=== PATIENT | male | born 1940 | race Caucasian/White ===

== ENCOUNTER → 2016-08-06 | Outpatient (CLI) | payer MEDICARE ==
[~2016-08-06] MED LIST: ALBU0.63 IH; ALBU8.5H2 IH; BUDE10.22 IH; FENASTERIDE PO; FINA5TAB6 PO; HYDR-3730 PO; IPRA3AMP IH; MONT10TA24 PO; OMEP20TA7 PO; PANT40TA2 PO; TAMS0.4C98 PO; VERA240C2 PO
--- OUTSIDE RECORDS SUMMARY | 2016-08-06 13:21 | XMS REPORT | Continuity of Care Document ---
Author Author [facility] Organization [facility] Address Unknown Phone Unavailable Allergies Active Description Code Type Severity Reaction Onset Reported/Identified Relationship to Patient Clinical Status Yes No Known Drug Allergies [id number] Drug Allergy Unknown N/ A 05/06/2014 Medications Problems Date Dx Coded Attending Type Code Diagnosis Diagnosed By 05/06/2014 SELENE MCKEON MD Ot 211.3 05/06/2014 SELENE MCKEON MD Ot 455.0 05/06/2014 SELENE MCKEON MD Ot 455.3 05/06/2014 SELENE MCKEON MD Ot 562.10 05/06/2014 SELENE MCKEON MD Ot V76.51 04/07/2015 VIV ASKEW DO Ot 493.00 Procedures Results Encounters ACCT No. Visit Date/Time Discharge Status Pt. Type Provider Facility Loc./Unit Complaint [id number] 05/06/2014 10:20:00 2013 14:20:00 DIS Outpatient SELENE MCKEON MD [facility] [id number] 05/04/2014 07:19:00 2013 23:59:59 CLS Outpatient SELENE MCKEON MD [facility] PREOP [id number] 04/26/2014 07:31:00 2013 23:59:59 CLS Outpatient [id number] 12/15/2013 06:45:00 2013 23:59:59 CLS Outpatient VIV ASKEW DO [facility] RT [id number] 09/16/2013 10:44:00 2013 23:59:59 CLS Outpatient
--- NOTE | 2016-08-06 13:27 | Diagnostic Imaging Report ---
INDICATION: Acid reflux, belching. COMPARISON: 09/16/2013. FINDINGS: No focal airspace disease. No pleural effusion or pneumothorax. Normal heart size and mediastinal contours. Stable pulmonary vasculature. No evidence of hiatal hernia by radiography. Age-related degenerative changes of the thoracic spine. IMPRESSION: 1. No acute cardiopulmonary process. 2. No radiographically apparent hiatal hernia. Dictated by: Dictated on workstation # [id number]
== END ==
LOC: RAD 09:23
PROVIDERS: ATTEND Family Medicine
DX: R14.2 Eructation (principal)
CPT/HCPCS: 71020

== ENCOUNTER → 2016-08-26 | Outpatient (CLI) | payer MEDICARE ==
[~2016-08-26] VITALS: Ht 182.9 cm; Wt 91.2 kg
--- OUTSIDE RECORDS SUMMARY | 2016-08-26 06:47 | XMS REPORT | Continuity of Care Document ---
Author Author [facility] Organization [facility] Address Unknown Phone Unavailable Allergies Active Description Code Type Severity Reaction Onset Reported/Identified Relationship to Patient Clinical Status Yes No Known Drug Allergies [id number] Drug Allergy Unknown N/ A 05/06/2014 Medications Problems Date Dx Coded Attending Type Code Diagnosis Diagnosed By 05/06/2014 SELENE MCKEON MD Ot 211.3 05/06/2014 SELENE MCKEON MD Ot 455.0 05/06/2014 SELENE MCKEON MD Ot 455.3 05/06/2014 SELENE MCKEON MD Ot 562.10 05/06/2014 SELENE MCKEON MD Ot V76.51 04/07/2015 VIV ASKEW DO Ot 493.00 08/06/2016 CRISTIANA KOCH, FRANK Douglas Ot R14.2 ERUCTATION Procedures Results Encounters ACCT No. Visit Date/Time Discharge Status Pt. Type Provider Facility Loc./Unit Complaint [id number] 05/06/2014 10:20:00 2013 14:20:00 DIS Outpatient SELENE MCKEON MD [facility] [id number] 05/04/2014 07:19:00 2013 23:59:59 CLS Outpatient SELENE MCKEON MD [facility] PREOP [id number] 04/26/2014 07:31:00 2013 23:59:59 CLS Outpatient [id number] 12/15/2013 06:45:00 2013 23:59:59 CLS Outpatient VIV ASKEW DO [facility] RT [id number] 09/16/2013 10:44:00 2013 23:59:59 CLS Outpatient [id number] 08/26/2016 06:29:00 ACT Outpatient SELENE MCKEON MD [facility] PREOP ABDOMINAL PAIN, HISTORY POLYPS [id number] 08/06/2016 09:23:00 ACT Outpatient CRISTIANA KOCH, FRANK Douglas [facility] RAD ERUCTATION
== END ==
LOC: PREOP 06:29
PROVIDERS: ATTEND Surgery Pediatric Surgery
DX: Z01.818 Encounter for other preprocedural examination (principal); Z12.11 Encounter for screening for malignant neoplasm of colon; Z86.010 Personal history of colon polyps; R10.9 Unspecified abdominal pain

== ENCOUNTER 2016-08-28 08:20 | Day surgery (SDC) | payer MEDICARE ==
[~2016-08-28] VITALS: Ht 182.9 cm; Wt 91.2 kg
[~2016-08-28 08:20] MED LIST changes: -ALBU0.63 IH; -FINA5TAB6 PO; -HYDR-3730 PO; -IPRA3AMP IH; -PANT40TA2 PO; -TAMS0.4C98 PO
--- OUTSIDE RECORDS SUMMARY | 2016-08-28 08:24 | XMS REPORT | Continuity of Care Document ---
Author Author [facility] Organization [facility] Address Unknown Phone Unavailable Allergies Active Description Code Type Severity Reaction Onset Reported/Identified Relationship to Patient Clinical Status Yes No Known Drug Allergies [id number] Drug Allergy Unknown N/ A 08/26/2016 Medications Problems Date Dx Coded Attending Type [...] Status Pt. Type Provider Facility Loc./Unit Complaint [id number] 05/06/2014 10:20:00 2013 14:20:00 DIS Outpatient SELENE MCKEON MD [facility] [id number] 05/04/2014 07:19:00 2013 23:59:59 CLS Outpatient SELENE MCKEON MD [facility] PREOP [id number] 04/26/2014 07:31:00 2013 23:59:59 CLS Outpatient [id number] 12/15/2013 06:45:00 2013 23:59:59 CLS Outpatient VIV ASKEW DO [facility] RT [id number] 09/16/2013 10:44:00 2013 23:59:59 CLS Outpatient [id number] 08/26/2016 06:29:00 ACT Outpatient SELENE MCKEON MD [facility] PREOP ABDOMINAL PAIN, HISTORY POLYPS [id number] 08/06/2016 09:23:00 ACT Outpatient CRISTIANA KOCH, FRANK Douglas [facility] RAD ERUCTATION
--- OUTSIDE RECORDS SUMMARY | 2016-08-28 08:24 | XMS REPORT | Continuity of Care Document ---
Author Author [facility] Organization [facility] Address Unknown Phone Unavailable Allergies Active Description Code Type Severity Reaction Onset Reported/Identified Relationship to Patient Clinical Status Yes No Known Drug Allergies [id number] Drug Allergy Unknown N/ A 08/26/2016 Medications [...] Status Pt. Type Provider Facility Loc./Unit Complaint [id number] 05/06/2014 10:20:00 2013 14:20:00 DIS Outpatient SELENE MCKEON MD [facility] [id number] 05/04/2014 07:19:00 2013 23:59:59 CLS Outpatient SELENE MCKEON MD [facility] PREOP [id number] 04/26/2014 07:31:00 2013 23:59:59 CLS Outpatient [id number] 12/15/2013 06:45:00 2013 23:59:59 CLS Outpatient VIV ASKEW DO [facility] RT [id number] 09/16/2013 10:44:00 2013 23:59:59 CLS Outpatient [id number] 08/26/2016 06:29:00 ACT Outpatient SELENE MCKEON MD [facility] PREOP ABDOMINAL PAIN, HISTORY POLYPS [id number] 08/06/2016 09:23:00 ACT Outpatient CRISTIANA KOCH, FRANK Douglas [facility] RAD ERUCTATION
[2016-08-28] MEDS ORDERED: HURRICAINE EXT TUBE (BENZOCAINE) XX PRN (08:30)
[2016-08-28] MEDS ORDERED: LIDOCAINE JELLY 2% (XYLOCAINE) 5 ML TUBE MM PRN (08:30)
[2016-08-28] MEDS ORDERED: NALOXONE 0.4 MG/ML 1 ML (NARCAN) VIAL IVP PRN (08:30)
[2016-08-28] MEDS ORDERED: FLUMAZENIL (ROMAZICON) 0.1 MG/ML 5 ML VIAL INJ PRN (08:30)
[2016-08-28 08:47] VITALS: BP 147/87
[2016-08-28] MEDS: NS IV 500 ML 500 ML IV PRN ×2 (08:51→09:35)
[2016-08-28] MEDS ORDERED: LIDOCAINE JELLY 2% (XYLOCAINE) 5 ML TUBE ONE (09:01)
[2016-08-28] MEDS ORDERED: fentaNYL INJECTION 100 MCG/2 ML AMP ONE ×2 (09:01)
[2016-08-28] MEDS ORDERED: HURRICAINE EXT TUBE (BENZOCAINE) ONE (09:02)
[2016-08-28] MEDS ORDERED: MIDAZOLAM 2 MG/2 ML (VERSED) VIAL ONE ×4 (09:02)
[2016-08-28] MEDS: fentaNYL INJECTION 100 MCG/2 ML AMP IVP PRN ×4 (09:12→09:49)
[2016-08-28] MEDS: MIDAZOLAM 2 MG/2 ML (VERSED) VIAL IVP PRN ×3 (09:13→09:39)
--- NOTE | 2016-08-28 09:17 | Progress Note-Pre Operative ---
Pre-Operative Progress Note H&P Reviewed The H&P was reviewed, patient examined and no changes noted. Date H&P Reviewed: Aug 28, 2016 Time H&P Reviewed: 09:00 Pre-Operative Diagnosis: GERD, chronic cough, hx polyp SELENE MCKEON MD Aug 28, 2016 9:17 am
--- NOTE | 2016-08-28 09:17 | Conscious Sedation/ASA ---
Conscious Sedation Pre-Proced Time Reviewed: 09:00 ASA Class: 2 Airway Mallampati Classification: ([place] appropriate class) I. II. III, IV Lungs Heart ASA score ASA 1: a normal healthy patient ASA 2: a patient with a mild systemic disease (mid diabetes, controlled hypertension, obesity ASA 3: a patient with a severe systemic disease that limits activity (angina , COPD, prior Myocardial infarction) ASA 4: a patient with an incapacitating disease that is a constant threat to life (CHF, renal failure) ASA 5: a moribund patient not expected to survive 24 hrs. (ruptured aneurysm) ASA 6: a declared brain patient whose organs are being harvested. For emergent operations, add the letter E after the classification Grade 2 Sedation Plan: Analgesia, Amnesia, Plan communicated to team members, Discussed options with patient/fam, Discussed risks with patient/fam Note The patient is an appropriate candidate to undergo the planned procedure, sedation, and anesthesia. The patient immediately re-assessed prior to indication. SELENE MCKEON MD Aug 28, 2016 9:17 am
[2016-08-28] MEDS ORDERED: morphine INJ 10 MG/ML 1ML (SYR OR VIAL) IV PRN (09:30)
[2016-08-28] MEDS ORDERED: ACETAMINOPHEN 325 MG TABLET/CAPLET (TYLENOL) PO PRN (09:30)
[2016-08-28] MEDS ORDERED: HYDROcodone/APAP 5 MG/325 MG (LORTAB) TAB PO PRN (09:30)
[2016-08-28] MEDS ORDERED: ONDANSETRON 4 MG/2 ML (SDV) Z0FRAN IV PRN (09:30)
[2016-08-28] MEDS ORDERED: NS IV 500 ML 500 ML ONE (09:34)
--- NOTE | 2016-08-28 10:12 | Progress Note-Post Operative ---
Post-Operative Progess Note Pre-Operative Diagnosis GERD, chronic cough, hx polyp Post-Operative Diagnosis reflux esophagits(class B), small distal esophageal diverticulum, moderate-large HH(4-5cm), moderate gastritis. mild sigmoid diverticulosis. Post-Op Procedure Note Date of Procedure: Aug 28, 2016 Name of Procedure: EGD with bx. Colonoscopy. Anesthesia Type CS Estimated blood loss (mL): minimal Specimen(s) collected GE jxn, antrum SELENE MCKEON MD Aug 28, 2016 10:12 am
[2016-08-28] MEDS ORDERED: PANT40TA2 PO (10:13)
--- NOTE | 2016-08-28 10:14 | Discharge Inst-Surgical ---
D/C Lap Instructions-KIDO New, Converted, or Re-Newed RX: RX on Chart Follow Up Appt in 6 weeks Activity as tolerated High Fiber Diet 25g or more per day Avoid Alcohol, Caffeine, Spicy [place] and Acid foods. Drink 64 fluid oz or more of fluids per day. Symptoms to Report: Fever over 101 degree F, Nausea/Vomiting If any problems/questions: Contact your physician or go to Emergency Room SELENE MCKEON MD Aug 28, 2016 10:14 am
[2016-08-28 10:25] VITALS: BP 117/60
[2016-08-28 11:00] VITALS: BP 120/68
[2016-08-28 11:17] VITALS: BP 120/68
--- NOTE | 2016-08-28 14:54 | PROCEDURE REPORT ---
PROCEDURE PHYSICIAN: SELENE STRINGER DATE OF PROCEDURE: 08/28/2016 ATTENDING PRIMARY CARE PHYSICIAN: Dr. Moi Damon PREOPERATIVE DIAGNOSIS: 1. History of colon polyps. 2. Gastroesophageal reflux disease. 3. Chronic cough. POSTOPERATIVE DIAGNOSES: 1. Reflux esophagitis class B. 2. Small distal esophageal diverticulum. 3. Large hiatal hernia 4 to 5 cm in size. 4. Moderate severity gastritis. 5. Pylorus. 6. Mild sigmoid diverticulosis. PROCEDURE: 1. EGD with biopsy. 2. Colonoscopy. SURGEON: Dr. Stringer. ANESTHESIA: Conscious sedation. ESTIMATED BLOOD LOSS: Minimal. FINDINGS: EGD: 1. Reflux esophagitis, class B. 2. Intrathoracic GE junction consistent with a hiatal hernia. 3. Small distal esophageal diverticulum. 4. Large hiatal hernia 4 to 5 cm in size. 5. Moderate severity gastritis. 6. Pylorus and duodenum appeared normal. COLONOSCOPY: 1. Colonoscopy-no significant hemorrhoids were identified. 2. Prostate gland was palpable and appeared normal. 3. Mild sigmoid diverticulosis. 4. The remainder of the colon was normal. 5. There were no polyps identified. DISPOSITION: The patient tolerated the procedure well. Mr. Daniel Reeder is a 75-year-old male known to us. He has had multiple colonoscopies done in the past. First one was done in 2001 where 2 polyps were identified in the sigmoid colon region and one at the rectosigmoid junction, 2 cm in size. This was biopsied and found to have some dysplastic changes. He underwent a follow-up colonoscopy 6 months later which did not show any lesions. In 2004 there were three ascending colon polyps identified, as well as one of the transverse colon and a mild sigmoid diverticulosis. All of the polyps were benign. In 2008 a hyperplastic colon was identified of the transverse and descending colon, as well as the rectum. In 2013 he had a polyp of the distal sigmoid colon, which was benign. At this time, he reports that he is having normal bowel movements and does not have any significant issues with diarrhea nor constipation. He does report that he has had worsening issues with reflux and regurgitation, as well as a chronic cough usually at night. He also has epigastric pressure sensation. PROCEDURE: The patient was brought to the endoscopy suite, laid in the left lateral decubitus position with the head slightly elevated. After adequate IV pain and sedative medications and conscious sedation anesthesia, the mouthpiece was applied. The endoscope was placed in the mouth, visualizing the pharynx and hypopharyngeal region. In the hypopharyngeal region there was some slight chronic edema which may be secondary to reflux versus sinusitis and postnasal drip. There were no discrete nodules or lesions identified. The endoscope was then gently intubated the esophageal opening and the esophagus insufflated. The endoscope was then advanced through the first, second, and 3rd portions esophagus. Just above the GE junction a small distal esophageal diverticulum was identified. There was a reflux esophagitis, class B identified with no ulcers or strictures. A biopsy was taken with forceps with visualization of good hemostasis. The endoscope was then advanced into the stomach and endoscope retroflexed visualizing a moderate to large size hiatal hernia, approximately 4 to 5 cm in size. There was also a moderate severity gastritis noted towards the lower aspect of the stomach. There were no formal ulcers, polyps or any neoplasms. A biopsy was taken with forceps with visualization of good hemostasis. The endoscope was then advanced through the pylorus into the first and second portions of the duodenum, which appeared normal. The endoscope was then slowly withdrawn while taking a second look and suctioning of residual air with no additional findings. The patient tolerated this portion the procedure well. For his reflux esophagitis, hiatal hernia, as well as gastritis, we will recommend medical management with the necessary lifestyle and diet accommodation including smaller, more frequent meals, avoidance of eating at night, as well as head elevation while lying supine. He also needs to avoid caffeinated beverages, spicy, greasy and acidic foods. We will also proceed with pantoprazole 40 mg daily. COLONOSCOPY: Under the same conscious sedation anesthesia, we then proceeded with the colonoscopy portion the procedure. A digital rectal examination was performed, which did not reveal any significant external or internal hemorrhoids. Normal sphincter tone was felt and there were no palpable masses. The endoscope was then intubated into the anus and the rectum gently insufflated. The endoscope was then advanced through the valves of Farrell the rectum with no polyps or any neoplasms identified. We then proceeded through the sigmoid colon where a mild sigmoid diverticulosis identified. The endoscope was then advanced through the remainder of the descending, transverse, and the ascending colon of the cecum. These segments were normal. There were no polyps or any neoplasms identified. The patient tolerated this portion the procedure well. We will recommend continued medical management with incorporation of a high fiber diet with at least 30 grams of fiber per day to as well as at least 64 fluid ounces of water daily to promote soft stools on a daily basis. We will recommend a follow-up colonoscopy in approximately 5 years. Job ID: [id number] Dictated Date: 08/28/2016 10:13:03 It Infrastructure Consultant Date: 08/28/2016 14:40:48 / gadiel
== END 2016-08-28 11:18 | disposition home or self-care (01) ==
LOC: ENDO 08:20
PROVIDERS: ATTEND Surgery Pediatric Surgery
DX: K21.0 Gastro-esophageal reflux disease with esophagitis (principal); K57.90 Diverticulosis of intestine, part unspecified, without perforation or abscess without bleeding; K44.9 Diaphragmatic hernia without obstruction or gangrene; K29.70 Gastritis, unspecified, without bleeding; Z86.010 Personal history of colon polyps
CPT/HCPCS: 88305

== ENCOUNTER 2016-10-21 14:50 | Outpatient (CLI) | payer MEDICARE ==
[~2016-10-21] VITALS: Ht 180.3 cm; Wt 88.0 kg
[~2016-10-21 14:50] MED LIST changes: +PANT40TA2 PO
[2016-10-21] MEDS ORDERED: FINA5TAB6 PO (14:54)
[2016-10-21 14:57] VITALS: BP 135/76
[2016-10-21] MEDS ORDERED: ALBU0.63 IH (15:02)
[2016-10-21] MEDS ORDERED: IPRA3AMP IH (15:04)
[2016-10-21 15:28] LABS: BASOPHILS # (AUTO) 0.1 10^3/uL (0.0-0.1); BASOPHILS % (AUTO) 1 % (0-10); EOSINOPHILS # (AUTO) 0.2 10^3/uL (0.0-0.3); EOSINOPHILS % (AUTO) 4 % (0-10); LYMPHOCYTES # (AUTO) 1.3 X 10^3 (1.0-4.0); LYMPHOCYTES % (AUTO) 20 % (12-44); MEAN CORPUSCULAR HEMOGLOBIN 28 PG (25-34); MEAN CORPUSCULAR HGB CONC 33 G/DL (32-36); MEAN CORPUSCULAR VOLUME 84 FL (80-99); MEAN PLATELET VOLUME 10.4 FL (7.4-10.4); MONOCYTES # (AUTO) 0.7 X 10^3 (0.0-1.0); MONOCYTES % (AUTO) 10 % (0-12); NEUTROPHILS # (AUTO) 4.4 X 10^3 (1.8-7.8); NEUTROPHILS % (AUTO) 66 % (42-75); PLATELET COUNT 212 10^3/uL (130-400); RED BLOOD COUNT 4.86 10^6/uL (4.35-5.85); RED CELL DISTRIBUTION WIDTH 14.1 % (10.0-14.5); WHITE BLOOD COUNT 6.7 10^3/uL (4.3-11.0)
== END 2016-10-21 15:15 | disposition home or self-care (01) ==
LOC: PREOP 14:50
PROVIDERS: ATTEND Surgery Pediatric Surgery
DX: Z01.812 Encounter for preprocedural laboratory examination (principal); Z11.2 Encounter for screening for other bacterial diseases; K44.9 Diaphragmatic hernia without obstruction or gangrene
CPT/HCPCS: 36415; 85025; 87081

== ENCOUNTER 2016-10-24 11:50 | Inpatient (IN) | payer MEDICARE ==
[~2016-10-24] VITALS: Ht 180.3 cm; Wt 88.0 kg
[~2016-10-24 11:50] MED LIST changes: +ALBU0.63 IH; +FINA5TAB6 PO; +IPRA3AMP IH
[2016-10-24] MEDS ORDERED: LACTATED RINGERS 1,000 ML IV PRN ×2 (12:29→12:40)
[2016-10-24] MEDS ORDERED: CATHETER FLUSH 10 ML SYR IV PRN (12:30)
[2016-10-24] MEDS ORDERED: ceFAZolin 1 GM/NS 50 ML IVPB IV ONE ×2 (12:30)
[2016-10-24] MEDS ORDERED: FAMOTIDINE 20MG/2ML IV (PEPCID) ONE (12:39)
[2016-10-24] MEDS ORDERED: FAMOTIDINE 20MG/2ML IV (PEPCID) IV ONE (12:45)
--- NOTE | 2016-10-24 12:48 | Progress Note-Pre Operative ---
Pre-Operative Progress Note H&P Reviewed The H&P was reviewed, patient examined and no changes noted. Date H&P Reviewed: October 24, 2016 Time H&P Reviewed: 12:45 Pre-Operative Diagnosis: symptomatic hiatal hernia SELENE MCKEON MD October 24, 2016 12:48 pm
[2016-10-24] MEDS ORDERED: BUP/EPI 0.5% 1:200,000 (SENSORCAINE) 30 ML VIAL ONE (13:58)
[2016-10-24] MEDS ORDERED: ONDANSETRON 4 MG/2 ML (SDV) Z0FRAN ONE (14:05)
[2016-10-24] MEDS ORDERED: SUCCINYLCHOLINE INJ 100 MG/5 ML SYR ONE (14:05)
[2016-10-24] MEDS ORDERED: ROCURONIUM 50 MG/5 ML (ZEMURON) VIAL IV ONE (14:05)
[2016-10-24] MEDS ORDERED: LIDOCAINE PF 2% 10 ML (XYLOCAINE) AMP ONE (14:05)
[2016-10-24] MEDS ORDERED: MIDAZOLAM 2 MG/2 ML (VERSED) VIAL ONE (14:05)
[2016-10-24] MEDS ORDERED: proPOfol 200 MG/20 ML (DIPRIVAN) VIAL IV ONE (14:05)
[2016-10-24] MEDS ORDERED: LACTATED RINGERS 1,000 ML IV ONE ×3 (14:05→19:04)
[2016-10-24] MEDS ORDERED: fentaNYL INJECTION 250 MCG/5 ML AMP ONE (14:06)
[2016-10-24] MEDS ORDERED: MIDAZOLAM 2 MG/2 ML (VERSED) VIAL IVP ONE (15:45)
[2016-10-24] MEDS: LACTATED RINGERS 1,000 ML IV PRN ×2 (16:42→19:10)
[2016-10-24] MEDS ORDERED: PHENYLEPHRINE 100 MCG/ML 10 ML (ANESTHESIA) SYR ONE (17:15)
[2016-10-24] MEDS ORDERED: HYDROmorphone (DILAUDID) 2 MG/ML VIAL IVP PRN (17:30)
[2016-10-24] MEDS ORDERED: MEPERIDINE (DEMEROL) INJ 50 MG/ML IVP PRN (17:30)
[2016-10-24] MEDS ORDERED: ONDANSETRON 4 MG/2 ML (SDV) Z0FRAN IVP PRN (17:30)
[2016-10-24] MEDS ORDERED: fentaNYL INJECTION 100 MCG/2 ML AMP ONE (17:35)
[2016-10-24] MEDS ORDERED: PROMETHAZINE INJ 25 MG/ML (PHENERGAN) AMP ONE (17:36)
[2016-10-24] MEDS ORDERED: SEVOFLURANE (ULTANE) 15 ML INHAL SOLN ONE ×4 (17:46→18:43)
[2016-10-24] MEDS ORDERED: GLYCOPYRROLATE 0.2 MG/ML (ROBINUL) 2 ML VIAL ONE (18:55)
[2016-10-24] MEDS ORDERED: NEOSTIGMINE (BLOXIVERZ ) 1 MG/1ML 10 ML VIAL ONE (18:55)
--- NOTE | 2016-10-24 19:08 | Progress Note-Post Operative ---
Post-Operative Progess Note Surgeon (s)/Traffic Division Commanding Officer (s) Surgeon SELENE MCKEON MD Traffic Division Commanding Officer: none Pre-Operative Diagnosis symptomatic hiatal hernia Post-Operative Diagnosis same Procedure & Operative Findings Date of Procedure 10/24/16 Procedure Preformed/Findings laparoscopic hiatal hernia repair and serge fundoplication Anesthesia Type GET Estimated Blood Loss Estimated blood loss (mL): minimal Specimens/Packing Specimens Removed none Packing: none SELENE MCKEON MD October 24, 2016 7:08 pm
[2016-10-24] MEDS ORDERED: diphenhydrAMINE 50 MG/ML INJ (BENADRYL) IVP PRN (19:15)
[2016-10-24] MEDS ORDERED: fentaNYL INJECTION 5,000 MCG in NS (IVPB) 0 ML IV SCH (19:15)
[2016-10-24] MEDS: morphine INJ 10 MG/ML 1ML (SYR OR VIAL) IVP PRN ×2 (19:50→19:54)
[2016-10-24 20:30] VITALS: BP 174/90
[2016-10-24] MEDS ORDERED: fentaNYL PCA 300 MCG/30 ML VIAL IV PRN (20:30)
[2016-10-24] MEDS ORDERED: NALOXONE 0.4 MG/ML 1 ML (NARCAN) VIAL IV PRN (20:30)
[2016-10-24] MEDS ORDERED: fentaNYL INJECTION 100 MCG/2 ML AMP IVP PRN (21:00)
[2016-10-24] MEDS: 1/2 NS W/KCL 20 MEQ/L 1,000 ML IV SCH (21:16)
[2016-10-24] MEDS: meTOprolol 5 MG/5 ML (LOPRESSOR) VIAL IVP SCH (21:16)
[2016-10-24] MEDS: ENOXAPARIN 30 MG/0.3 ML (LOVENOX) SYR SC SCH (21:16)
[2016-10-24] MEDS: metroNIDAZOLE 500MG/100ML IVPB 100 ML IV SCH (21:22)
[2016-10-24] MEDS: RT-ALBUTEROL SULF 2.5 MG/3 ML PRE-MIX VIAL INH SCH (21:58)
[2016-10-25 00:15] VITALS: BP 161/85
[2016-10-25] MEDS: ONDANSETRON 4 MG/2 ML (SDV) Z0FRAN IVP SCH ×3 (00:19→13:01)
[2016-10-25] MEDS: meTOprolol 5 MG/5 ML (LOPRESSOR) VIAL IVP SCH ×3 (00:20→08:58)
[2016-10-25] MEDS ORDERED: NS (IVPB) 50 ML ONE (00:30)
[2016-10-25] MEDS ORDERED: ceFAZolin 1,000 MG (ANCEF) VIAL ONE (00:30)
[2016-10-25] MEDS: ceFAZolin 2 GM/50 ML NS 50 ML IV SCH ×2 (00:45→08:58)
[2016-10-25] MEDS: oxyCODONE 20 MG/1 ML ORAL CONC (RoxiCODONE) CHARGE PER 1 ML PO PRN ×2 (02:00→14:06)
[2016-10-25] MEDS: RT-ALBUTEROL SULF 2.5 MG/3 ML PRE-MIX VIAL INH SCH ×3 (02:40→11:29)
--- NOTE | 2016-10-25 03:51 | OPERATIVE REPORT ---
DATE OF SERVICE: 10/24/2016 ATTENDING PRIMARY CARE PHYSICIAN: Dr. Moi Damon. PREOPERATIVE DIAGNOSIS: Symptomatic large hiatal hernia. POSTOPERATIVE DIAGNOSIS: Symptomatic large hiatal hernia. PROCEDURE: Laparoscopic hiatal hernia repair and Hannah fundoplication. SURGEON: Dr. Mckeon. ANESTHESIA: General endotracheal. ESTIMATED BLOOD LOSS: Minimal. FINDINGS: Large hiatal hernia approximately 4 to 5 cm in size. DISPOSITION: The patient tolerated the procedure well. The patient is a 75-year-old male known to us. We have seen him in the past for colonoscopies as well as polyps in the past. On 08/28/2016 he underwent an EGD and colonoscopy. Findings included a reflux esophagitis B as well as an intrathoracic GE junction and large hiatal hernia approximately 4 to 5 cm in size. He also was found to have moderate severity gastritis. Biopsies were negative for H. pylori as well as negative for Germain's esophagus. He has had a longstanding history of gastroesophageal reflux disease as well as regurgitation and constant belching. He reports that this has worsened in the past several months and tends to occur at all times. The risks and benefits of hiatal hernia repair as well as a Hannah fundoplication were explained to the patient and he wanted to proceed with surgery. He underwent an esophageal manometry study which did show normal waveform contractions of the esophagus as well as normal lower esophageal sphincter tone. DESCRIPTION OF PROCEDURE: The patient was brought to the operating room, laid supine on the table. After adequate IV pain and sedating medications and general endotracheal intubation, the abdomen was prepped and draped in standard surgical fashion. 0.5% Marcaine with epinephrine was then used to anesthetize the overlying skin in the left upper abdominal quadrant and a small transverse skin incision made using a 15 blade. A 0 silk suture was applied to the medial aspect of the incision for retraction, a Veress needle inserted with a low opening pressure of 0 mmHg. The abdomen was then insufflated to 15 mmHg pressure. The Veress needle removed and a 5 mm Xcel trocar placed followed by a 5 mm 45-degree angle laparoscope, visualizing the peritoneal cavity. A four-quadrant abdominal exploration was performed. We were not able to visualize the hiatal hernia at this time. What was visualized was the liver, stomach, gallbladder, small bowel; omentum appeared normal. Under direct visualization, we then proceeded to place a midabdominal, left of midline 10 mm port after the skin and peritoneum were anesthetized using 0.5% Marcaine with epinephrine and a transverse skin incision made using a 15 blade. In a similar manner, a midabdominal, right of midline 10 mm port was placed followed by a right upper abdominal quadrant 5 mm port. An area in the epigastric region was then anesthetized using 0.5% Marcaine with epinephrine and a small transverse skin incision made using an 11 blade. A tract was then created through the abdominal wall layers using a trocar to a 5 mm port. Through this opening, a medium sized [place] liver retractor was placed and the left lobe of the liver retracted anteriorly and superiorly. A large hiatal hernia was identified with stomach within the hernia sac. The patient was then placed in steep reverse Trendelenburg position. The stomach was reduced out of the mediastinum and we proceeded with excision of the hernia sac within the mediastinum. We proceeded first with opening of the pars flaccida and identifying the right josefina of the diaphragm. We then proceeded concentrically around the anterior portion of the diaphragm. We then proceeded left lateral, dissecting out the entire left josefina of the diaphragm as well. The inferior portion was then dissected out using Sonicision as well with visualization of good hemostasis. We then proceeded with approximation of the josefina of the diaphragm using interrupted 2-0 Surgidac sutures using EndoStitch device. We then proceeded to place 2 anterior sutures to restore the normal anatomy of the esophageal hiatus through the diaphragm. Good hemostasis was observed. We then proceeded to take down the short gastric vessels along the fundus and cardia of the stomach using the Sonicision. We then proceeded with a Hannah 360-degree posterior to anterior wrap in a loose manner. We proceeded to place interrupted 2-0 Surgidac sutures approximating the inferior and anterior portions of the stomach as well as encompassing the muscle layer of the esophagus. Good hemostasis was observed. The liver retractor was then removed and the fascia and peritoneum to the 10 mm ports were then removed using a Praneeth-Halina device and a 0 Vicryl suture. The abdomen was desufflated and the remaining ports removed. All skin incisions were closed using 4-0 Monocryl running subcuticular sutures. Wounds were then cleaned and covered with Dermabond. The patient tolerated the procedure well. We will start IV and oral pain medication with a NEGATIVE RESTORER. We will also proceed with DVT prophylaxis with calf SCDs, early ambulation as well as Lovenox injections. Tomorrow we will start the patient on clear liquid diet and once he is tolerating liquids and has good pain control with oral pain medication, is ambulating well, we will discharge him home. Job ID: [id number] DocumentID: [id number] Dictated Date: 10/24/2016 19:26:18 Women'S Studies Lecturer Date: 10/25/2016 03:51:11 Dictated By: SELENE MCKEON MD
[2016-10-25 04:20] VITALS: BP 163/77
[2016-10-25] MEDS: 1/2 NS W/KCL 20 MEQ/L 1,000 ML IV SCH (04:22)
[2016-10-25] MEDS: metroNIDAZOLE 500MG/100ML IVPB 100 ML IV SCH ×2 (04:22→13:01)
[2016-10-25 06:16] LABS: MEAN PLATELET VOLUME 10.4 FL (7.4-10.4); RED BLOOD COUNT 4.66 10^6/uL (4.35-5.85); RED CELL DISTRIBUTION WIDTH 13.8 % (10.0-14.5); WHITE BLOOD COUNT 8.8 10^3/uL (4.3-11.0)
[2016-10-25 07:16] LABS: ANION GAP 7 MMOL/L (5-14); BLOOD UREA NITROGEN 14 MG/DL (7-18); BUN/CREATININE RATIO 18; CALCIUM 8.3 MG/DL (8.5-10.1); CARBON DIOXIDE 23 MMOL/L (21-32); CHLORIDE 107 MMOL/L (98-107); CREATININE SERUM 0.79 MG/DL (0.60-1.30); GFR ESTIMATED > 60; GLUCOSE 94 MG/DL (70-105); POTASSIUM 4.1 MMOL/L (3.6-5.0); SODIUM 137 MMOL/L (135-145)
[2016-10-25 08:00] VITALS: BP 152/74
[2016-10-25] MEDS ORDERED: PANTOPRAZOLE 40 MG/10 ML (PROTONIX) VIAL IV SCH (09:00)
[2016-10-25] MEDS: ENOXAPARIN 30 MG/0.3 ML (LOVENOX) SYR SC SCH (09:00)
[2016-10-25] MEDS ORDERED: TAMS0.4C98 PO (10:18)
--- NOTE | 2016-10-25 11:49 | Progress Note (SOAP) ---
Subjective Subjective/Events-last exam doing well. tolerating liquids. urinary retention with hx BPH. Objective Exam Vital Signs Date Time Temp Pulse Resp B/P (MAP) Pulse Ox O2 Delivery O2 Flow Rate FiO2 10/25/16 11:30 92 10/25/16 08:00 98.6 70 20 152/74 94 2.00 2.00 10/25/16 07:16 93 10/25/16 04:20 97.8 79 18 163/77 96 2.00 10/25/16 02:41 96 3.00 10/25/16 00:56 82 10/25/16 00:15 97.2 82 18 161/85 94 2.00 10/24/16 21:58 96 3.00 10/24/16 21:45 81 10/24/16 20:30 96.2 86 8 174/90 95 2.00 10/24/16 20:30 3.00 I & O 10/25/16 07:00 Intake Total 4300 ml Output Total 1375 ml Balance 2925 ml Capillary Refill : General Appearance: No Apparent Distress HEENT: PERRL/EOMI Neck: Full Range of Motion Respiratory: Chest Non Tender Cardiovascular: Regular Rate, Rhythm Gastrointestinal: normal bowel sounds, non tender Extremity: Normal Capillary Refill Neurologic/Psychiatric: Alert, Oriented x3 Skin: Normal Color Lymphatic: No Adenopathy Results Lab Laboratory Tests 10/25/16 05:28: White Blood Count 8.8, Red Blood Count 4.66, Hemoglobin 12.9L, Hematocrit 40, Mean Corpuscular Volume 85, Mean Corpuscular Hemoglobin 28, Mean Corpuscular Hemoglobin Concent 33, Red Cell Distribution Width 13.8, Platelet Count 177, Mean Platelet Volume 10.4, Sodium Level 137, Potassium Level 4.1, Chloride Level 107, Carbon Dioxide Level 23, Anion Gap 7, Blood Urea Nitrogen 14, Creatinine 0.79, Estimat Glomerular Filtration Rate > 60, BUN/Creatinine Ratio 18, Glucose Level 94, Calcium Level 8.3L Assessment/Plan Assessment/Plan Assess & Plan/Chief Complaint s/p HH repair and serge fundoplication. ambulate, phase 1 clear liquid diet for 1 week. home soon. Clinical Quality Measures DVT/VTE Risk/Contraindication: Risk Factor Score Per Nursin RFS Level Per Nursing on Admit: 3=High SELENE MCKEON MD October 25, 2016 11:49 am
[2016-10-25] MEDS ORDERED: HYDR-3730 PO (11:50)
--- NOTE | 2016-10-25 11:52 | Discharge Inst-Surgical ---
D/C Lap Instructions-MIKE New, Converted, or Re-Newed RX: RX on Chart Follow Up Appt in 2 weeks Activity as tolerated No driving for 24 hours No driving while on pain medications Incentive Spirometry use every 2 hours while awake clear liquid diet 1 week, then soft diet next 1 week, then regular diet however hold off on salad/bread/carbonated beverages until 4 weeks. Symptoms to Report: Fever over 101 degree F, Nausea/Vomiting Infection Signs and Symptoms to report: Increased redness, Foul odor of wound, Increased drainage Bathing instructions: May shower Operative Area Clean/Dry; Keep incision clean/dry If any problems/questions: Contact your physician or go to Emergency Room SELENE MCKEON MD October 25, 2016 11:52 am
[2016-10-25 13:03] VITALS: BP 139/70
[2016-10-25 14:15] VITALS: BP 118/62
--- NOTE | 2016-10-25 14:24 | Anesthesia-General Post-Op ---
General Patient Condition Mental Status/LOC: Same as Preop Cardiovascular: Satisfactory Nausea/Vomiting: Absent Respiratory: Satisfactory Pain: Controlled Complications: Absent Post Op Complications Complications None Follow Up Care/Instructions Patient Instructions None needed. Anesthesia/Patient Condition Patient Condition Patient is doing well, stable vital signs, no apparent adverse anesthesia problems and ready for discharge to home. SANCHEZ DEGROOT DO October 25, 2016 14:24
[2016-10-25] MEDS ORDERED: METOCLOPRAMIDE INJ 10 MG/2 ML (REGLAN) IVP PRN (19:15)
[2016-10-25] MEDS ORDERED: ONDANSETRON 4 MG/2 ML (SDV) Z0FRAN IVP PRN (19:15)
== END 2016-10-25 14:15 | disposition home or self-care (01) | DRG 328 ==
LOC: SDC 11:50 → 4TH 19:09 → SDC 19:16 → 4TH 19:16 → UNDOFXSDCACCOM 20:59 → UNDOFXSDCRRACCOM 20:59
PROVIDERS: ADMIT Surgery Pediatric Surgery; ATTEND Surgery Pediatric Surgery
PROC: 0DV44ZZ Restriction of Esophagogastric Junction, Percutaneous Endoscopic Approach (ICD-10-PCS; 2016-10-24)
PROC: 0DQ64ZZ Repair Stomach, Percutaneous Endoscopic Approach (ICD-10-PCS; principal; 2016-10-24 16:15)
DX: K44.9 Diaphragmatic hernia without obstruction or gangrene (principal); Z86.010 Personal history of colon polyps; J45.909 Unspecified asthma, uncomplicated; I10 Essential (primary) hypertension; N40.1 Benign prostatic hyperplasia with lower urinary tract symptoms; M48.02 Spinal stenosis, cervical region; Z79.899 Other long term (current) drug therapy
CPT/HCPCS: 36415; 80048; 85027; 94640; 94664; 94760

== ENCOUNTER → 2016-12-24 | Outpatient (CLI) | payer MEDICARE ==
[~2016-12-24] MED LIST changes: +HYDR-3730 PO; +HYDR-3816 PO; +PANT40TA3 PO; +TAMS0.4C2 PO; +TAMS0.4C98 PO
--- NOTE | 2016-12-24 09:55 | Diagnostic Imaging Report ---
PROCEDURE: US Gallbladder. TECHNIQUE: Multiple real-time grayscale images were obtained over the right upper quadrant in various projections. INDICATION: Right upper quadrant pain. Findings: The pancreas is largely obscured by bowel gas. The liver has slightly coarse echotexture with no focal mass demonstrated. Hepatopetal flow in the portal vein is seen. There is a stone and sludge near the gallbladder bed. The wall of the gallbladder is not thickened. No pericholecystic fluid is seen. The CBD is obscured by bowel gas. The right kidney is 10.5 cm in length with no hydronephrosis or focal lesion. No fluid collection is identified in the upper right quadrant. Sonographic Roman sign is reportedly negative. IMPRESSION: Cholelithiasis. Dictated by: Dictated on workstation # [id number]
== END ==
LOC: RAD 07:38
PROVIDERS: ATTEND Surgery
DX: K80.20 Calculus of gallbladder without cholecystitis without obstruction (principal)
CPT/HCPCS: 76705

== ENCOUNTER 2016-12-25 08:20 | Outpatient (CLI) | payer MEDICARE ==
[~2016-12-25] VITALS: Ht 180.3 cm; Wt 83.0 kg
[~2016-12-25 08:20] MED LIST changes: -HYDR-3816 PO; -PANT40TA3 PO; -TAMS0.4C2 PO
[2016-12-25] MEDS ORDERED: TAMS0.4C2 PO (09:44)
[2016-12-25] MEDS ORDERED: PANT40TA3 PO (09:44)
[2016-12-25] MEDS ORDERED: HYDR-3816 PO (09:44)
[2016-12-26] MEDS ORDERED: HYDR-3816 PO (10:53)
== END 2016-12-25 09:48 ==
LOC: PREOP 08:20
PROVIDERS: ATTEND Surgery
DX: Z01.818 Encounter for other preprocedural examination (principal); K80.20 Calculus of gallbladder without cholecystitis without obstruction

== ENCOUNTER 2016-12-26 06:28 | Day surgery (SDC) | payer MEDICARE ==
[~2016-12-26] VITALS: Ht 180.3 cm; Wt 83.0 kg
[~2016-12-26 06:28] MED LIST changes: +HYDR-3816 PO; +PANT40TA3 PO; +TAMS0.4C2 PO
--- OUTSIDE RECORDS SUMMARY | 2016-12-26 06:33 | XMS REPORT | Continuity of Care Document ---
Author Author [facility] Organization [facility] Address Unknown Phone Unavailable Allergies Active Description Code Type Severity Reaction Onset Reported/Identified Relationship to Patient Clinical Status Yes No Known Drug Allergies [id number] Drug Allergy Unknown N/ A 08/26/2016 Medications Problems Date Dx Coded Attending Type Code Diagnosis Diagnosed By 05/06/2014 SELENE MCKEON MD Ot 211.3 05/06/2014 SELENE MCKEON MD, Ot 455.0 05/06/2014 SELENE MCKEON MD Ot 455.3 05/06/2014 SELENE MCKEON MD Ot 562.10 05/06/2014 SELENE MCKEON MD Ot V76.51 04/07/2015 VIV ASKEW DO Ot 493.00 08/06/2016 FRANK ZENDEJAS MD R Ot R14.2 ERUCTATION 08/28/2016 SELENE MCKEON MD Ot K21.0 GASTRO-ESOPHAGEAL REFLUX DISEASE WITH ES 08/28/2016 SELENE MCKEON MD Ot K29.70 GASTRITIS, UNSPECIFIED, WITHOUT BLEEDING 08/28/2016 SELENE MCKEON MD Ot K44.9 DIAPHRAGMATIC HERNIA WITHOUT OBSTRUCTION 08/28/2016 SELENE MCKEON MD Ot K57.90 DVRTCLOS OF INTEST, PART UNSP, W/O PERF 08/28/2016 SELENE MCKEON MD Ot Z86.010 PERSONAL HISTORY OF COLONIC POLYPS 08/28/2016 FRANK ZENDEJAS MD R Ot R14.2 ERUCTATION 08/29/2016 SELENE MCKEON MD Ot K21.0 GASTRO-ESOPHAGEAL REFLUX DISEASE WITH ES 08/29/2016 SELENE MCKEON MD Ot K29.70 GASTRITIS, UNSPECIFIED, WITHOUT BLEEDING 08/29/2016 SELENE MKCEON MD Ot K44.9 DIAPHRAGMATIC HERNIA WITHOUT OBSTRUCTION 08/29/2016 SELENE MCKEON MD Ot K57.90 DVRTCLOS OF INTEST, PART UNSP, W/O PERF 08/29/2016 SELENE MCKEON MD, Ot Z86.010 PERSONAL HISTORY OF COLONIC POLYPS 09/04/2016 CRISTIANA KOCH, FRANK R Ot R14.2 ERUCTATION 10/21/2016 SELENE MCKEON MD, Ot K44.9 DIAPHRAGMATIC HERNIA WITHOUT OBSTRUCTION 10/21/2016 SELENE MCKEON MD, Ot Z01.812 ENCOUNTER FOR PREPROCEDURAL LABORATORY E 10/21/2016 SELENE MCKEON MD, Ot Z11.2 ENCOUNTER FOR SCREENING FOR OTHER BACTER 10/25/2016 SELENE MCKEON MD, Ot I10 ESSENTIAL (PRIMARY) HYPERTENSION 10/25/2016 SELENE MCKEON MD, Ot J45.909 UNSPECIFIED ASTHMA, UNCOMPLICATED 10/25/2016 SELENE MCKEON MD, Ot K44.9 DIAPHRAGMATIC HERNIA WITHOUT OBSTRUCTION 10/25/2016 SELENE MCKEON MD, Ot M48.02 SPINAL STENOSIS, CERVICAL REGION 10/25/2016 SELENE MCKEON MD, Ot N40.1 BENIGN PROSTATIC HYPERPLASIA WITH LOWER 10/25/2016 SELENE MCKEON MD, Ot Z79.899 OTHER [employer] 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 10/25/2016 SELENE MCKEON MD, Ot Z86.010 PERSONAL HISTORY OF COLONIC POLYPS Procedures Code Description Performed By Performed On [id number] REPAIR STOMACH, PERCUTANEOUS ENDOSCOPIC 10/24/2016 [id number] RESTRICTION OF ESOPHAGOGASTRIC JUNCTION, 10/24/2016 Results Test Result Range Complete blood count (CBC) with automated white blood cell (WBC) differential - 10/21/16 15:10 Blood leukocytes automated count (number/volume) 6.7 10*3/ uL 4.3-11.0 Blood erythrocytes automated count (number/volume) 4.86 10*6 /uL 4.35-5.85 Venous blood hemoglobin measurement (mass/volume) 13.5 g/dL 13.3-17.7 Blood hematocrit (volume fraction) 41 % 40-54 Automated erythrocyte mean corpuscular volume 84 [foz_us] 80-99 Automated erythrocyte mean corpuscular hemoglobin (mass per erythrocyte) 28 pg 25-34 Automated erythrocyte mean corpuscular hemoglobin concentration measurement ( mass/volume) 33 g/dL 32-36 Automated erythrocyte distribution width ratio 14.1 % 10.0-14.5 Automated blood platelet count (count/volume) 212 10*3/uL 130-400 Automated blood platelet mean volume measurement 10.4 [foz_ us] 7.4-10.4 Automated blood neutrophils/100 leukocytes 66 % 42-75 Automated blood lymphocytes/100 leukocytes 20 % 12-44 Blood monocytes/100 leukocytes 10 % 0-12 Automated blood eosinophils/100 leukocytes 4 % 0-10 Automated blood basophils/100 leukocytes 1 % 0-10 Blood neutrophils automated count (number/volume) 4.4 10*3 1.8-7.8 Blood lymphocytes automated count (number/volume) 1.3 10*3 1.0-4.0 Blood monocytes automated count (number/volume) 0.7 10*3 0.0-1.0 Automated eosinophil count 0.2 10*3/uL 0.0-0.3 Automated blood basophil count (count/volume) 0.1 10*3/uL 0.0-0.1 Methicillin resistant Staphylococcus aureus (MRSA) screening culture - 15:10 Methicillin resistant Staphylococcus aureus (MRSA) screening culture NEG NRG Automated blood complete blood count (hemogram) panel - 10/25/16 05:28 Blood leukocytes automated count (number/volume) 8.8 10*3/ uL 4.3-11.0 Blood erythrocytes automated count (number/volume) 4.66 10*6 /uL 4.35-5.85 Venous blood hemoglobin measurement (mass/volume) 12.9 g/dL 13.3-17.7 Blood hematocrit (volume fraction) 40 % 40-54 Automated erythrocyte mean corpuscular volume 85 [foz_us] 80-99 Automated erythrocyte mean corpuscular hemoglobin (mass per erythrocyte) 28 pg 25-34 Automated erythrocyte mean corpuscular hemoglobin concentration measurement ( mass/volume) 33 g/dL 32-36 Automated erythrocyte distribution width ratio 13.8 % 10.0-14.5 Automated blood platelet count (count/volume) 177 10*3/uL 130-400 Automated blood platelet mean volume measurement 10.4 [foz_ us] 7.4-10.4 Whole blood basic metabolic panel - 10/25/16 05:28 Serum or plasma sodium measurement (moles/volume) 137 mmol/ L 135-145 Serum or plasma potassium measurement (moles/volume) 4.1 mmol/L 3.6-5.0 Serum or plasma chloride measurement (moles/volume) 107 mmol /L 98-107 Carbon dioxide 23 mmol/L 21-32 Serum or plasma anion gap determination (moles/volume) 7 mmol/L 5-14 Serum or plasma urea nitrogen measurement (mass/volume) 14 mg/dL 7-18 Serum or plasma creatinine measurement (mass/volume) 0.79 mg /dL 0.60-1.30 Serum or plasma urea nitrogen/creatinine mass ratio 18 NRG Serum or plasma creatinine measurement with calculation of estimated glomerular filtration rate > NRG Serum or plasma glucose measurement (mass/volume) 94 mg/dL 70-105 Serum or plasma calcium measurement (mass/volume) 8.3 mg/dL 8.5-10.1 Encounters ACCT No. Visit Date/Time Discharge Status Pt. Type Provider Facility Loc./Unit Complaint [id number] 10/24/2016 19:09:00 2016 14:15:00 DIS Inpatient SELENE MCKEON MD [facility] 4TH HIATAL HERNIA [id number] 10/21/2016 14:50:00 2016 15:15:00 DIS Outpatient SELENE MCKEON MD [facility] PREOP HIATAL HERNIA [id number] 08/28/2016 08:20:00 2016 11:18:00 DIS Outpatient SELENE MCKEON MD [facility] ENDO ABDOMINL PAIN, HISTORY POLYPS [id number] 05/06/2014 10:20:00 2013 14:20:00 DIS Outpatient SELENE MCKEON MD [facility] SDC [id number] 05/04/2014 07:19:00 2013 23:59:59 CLS Outpatient SELENE MCKEON MD [facility] PREOP [id number] 04/26/2014 07:31:00 2013 23:59:59 CLS Outpatient [id number] 12/15/2013 06:45:00 2013 23:59:59 CLS Outpatient VIV ASKEW DO [facility] RT [id number] 09/16/2013 10:44:00 2013 23:59:59 CLS Outpatient [id number] 12/26/2016 10:00:00 PEN Preadmit MIKE KOCH, SELENE [facility] CARD RUQ PAIN,ABD PAIN [id number] 12/24/2016 08:00:00 PEN Preadmit MIKE KOCH, SELENE [facility] RAD RUQ PAIN,ABD PAIN [id number] 08/26/2016 06:29:00 ACT Outpatient SELENE MCKEON MD [facility] PREOP ABDOMINAL PAIN, HISTORY POLYPS [id number] 08/06/2016 09:23:00 ACT Outpatient CRISTIANA KOCH, FRANK [facility] RAD ERUCTATION
[2016-12-26] MEDS ORDERED: LACTATED RINGERS 1,000 ML IV PRN (06:54)
[2016-12-26] MEDS ORDERED: fentaNYL INJECTION 100 MCG/2 ML AMP ONE ×2 (06:55→08:39)
[2016-12-26] MEDS ORDERED: proPOfol 200 MG/20 ML (DIPRIVAN) VIAL IV ONE (06:55)
[2016-12-26] MEDS ORDERED: MIDAZOLAM 2 MG/2 ML (VERSED) VIAL ONE (06:55)
[2016-12-26] MEDS ORDERED: LIDOCAINE 2% 20 ML (XYLOCAINE) VIAL ONE (06:55)
[2016-12-26] MEDS ORDERED: SEVOFLURANE (ULTANE) 15 ML INHAL SOLN ONE ×4 (06:55→09:19)
[2016-12-26] MEDS ORDERED: DEXAMETHASONE PF 10 MG/ML (DECADRON) VIAL ONE ×2 (07:02→09:19)
[2016-12-26] MEDS ORDERED: ONDANSETRON 4 MG/2 ML (SDV) Z0FRAN ONE (07:02)
[2016-12-26] MEDS ORDERED: ROCURONIUM 50 MG/5 ML (ZEMURON) VIAL IV ONE (07:02)
[2016-12-26] MEDS ORDERED: NS (IVPB) 50 ML ONE (07:14)
[2016-12-26] MEDS ORDERED: ceFAZolin 1,000 MG (ANCEF) VIAL ONE (07:14)
[2016-12-26] MEDS ORDERED: BUP/EPI 0.5% 1:200,000 (MARCAINE) 10ML VIAL IJ ONE (07:16)
[2016-12-26] MEDS ORDERED: CATHETER FLUSH 10 ML SYR IV PRN (07:30)
[2016-12-26] MEDS ORDERED: ceFAZolin 1 GM/NS 50 ML IVPB IV ONE ×2 (07:30)
[2016-12-26 07:45] VITALS: BP 141/72
--- NOTE | 2016-12-26 07:46 | Progress Note-Pre Operative ---
Pre-Operative Progress Note H&P Reviewed The H&P was reviewed, patient examined and no changes noted. Date Seen by Provider: Dec 26, 2016 Time Seen by Provider: 07:40 Date H&P Reviewed: Dec 26, 2016 Time H&P Reviewed: 07:45 Pre-Operative Diagnosis: Chronic calculous cholecystitis BAILEY ESTRADA APRN Dec 26, 2016 7:46 am
[2016-12-26] MEDS ORDERED: ONDANSETRON 4 MG/2 ML (SDV) Z0FRAN IVP PRN ×2 (08:00→09:45)
[2016-12-26] MEDS ORDERED: HYDROcodone/APAP 5 MG/325 MG (LORTAB) TAB PO ONE (08:00)
[2016-12-26] MEDS ORDERED: ACETAMINOPHEN 325 MG TABLET/CAPLET (TYLENOL) PO PRN (08:00)
[2016-12-26] MEDS ORDERED: morphine INJ 10 MG/ML 1ML (SYR OR VIAL) IVP PRN ×2 (08:00→09:45)
[2016-12-26] MEDS ORDERED: LACTATED RINGERS 1,000 ML IV ONE (09:19)
[2016-12-26] MEDS ORDERED: NEOSTIGMINE (BLOXIVERZ ) 1 MG/1ML 10 ML VIAL ONE (09:19)
[2016-12-26] MEDS ORDERED: GLYCOPYRROLATE 0.2 MG/ML (ROBINUL) 2 ML VIAL ONE (09:19)
[2016-12-26] MEDS ORDERED: morphine INJ 10 MG/ML 1ML (SYR OR VIAL) ONE (09:38)
[2016-12-26 10:25] VITALS: BP 143/72
[2016-12-26] MEDS ORDERED: HYDR-3816 PO (10:53)
[2016-12-26 10:55] VITALS: BP 137/74
[2016-12-26 11:25] VITALS: BP 148/79
--- NOTE | 2016-12-26 14:42 | Progress Note-Post Operative ---
Post-Operative Progess Note Surgeon (s)/Vending Machine Attendant (s) Surgeon SELENE MCKEON MD Vending Machine Attendant: temo orellana PHYSICAL THERAPY TEACHER Pre-Operative Diagnosis Chronic calculous cholecystitis Post-Operative Diagnosis same Procedure & Operative Findings Date of Procedure 12/26/16 Procedure Performed/Findings laparoscopic cholecystectomy Anesthesia Type GET Estimated Blood Loss Estimated blood loss (mL): minimal Specimens/Packing Specimens Removed gallbladder SELENE MCKEON MD Dec 26, 2016 2:42 pm
--- NOTE | 2016-12-27 12:58 | PROCEDURE REPORT ---
PROCEDURE PHYSICIAN: SELENE STRINGER DATE OF PROCEDURE: 12/26/2016 ATTENDING PRIMARY CARE PHYSICIAN: Dr. Damon. PREOPERATIVE DIAGNOSIS: Chronic symptomatic calculous cholecystitis. POSTOPERATIVE DIAGNOSIS: Chronic symptomatic calculous cholecystitis. PROCEDURE: Laparoscopic cholecystectomy. SURGEON: Dr. Stringer. SCREENER AND BLENDER OPERATOR: Tanner Jones APRN. ANESTHESIA: General endotracheal. ESTIMATED BLOOD LOSS: Minimal. FINDINGS: 1. Chronic gallbladder wall inflammation as well as omental adhesions. 2. Multiple small gallstones. 3. Intact previous wrap. DISPOSITION: The patient tolerated the procedure well. Mr. Daniel Reeder is a 75-year-old male known to us. He has had a long-standing history of gastroesophageal reflux disease, which progressed her reflux, regurgitation and constant belching. On 08/28/2016 he underwent an EGD and was found to have a large hiatal hernia approximately 4 to 5 cm in size. Biopsies were negative for H. pylori as well as negative for Germain's esophagus. The risks and benefits of hiatal hernia repair, as well as Hannah fundoplication were explained to the patient. He had reported that his symptoms did interfere with his activities of daily living and underwent an esophageal manometry study, which showed normal waveform contractions of the esophagus, as well as normal lower esophageal sphincter tone. On 10/24/2016 he underwent laparoscopic hiatal hernia repair, as well as Hannah fundoplication. He did well postoperatively. He is able to tolerate liquids and solids and does not have any dysphagia. He reports that his belching and regurgitation symptoms have improved. He does report that he has had persistence of pain in the right upper abdominal quadrant that now radiation towards the back. He states greasy foods tend to make this worse. He also reports some mild nausea; however, no vomiting. An ultrasound was performed, which did show multiple gallstones. PROCEDURE: The patient was brought to the operating room, laid supine on the table. After adequate IV pain and sedative medications and general endotracheal intubation, the abdomen was prepped and draped in standard surgical fashion. 0.5% Marcaine with epinephrine were then used to anesthetize the overlying skin in the left upper up abdominal quadrant. A small transverse skin incision was made using a 15 blade. A 0 silk suture was applied to the medial aspect of the incision for retraction and a Veress needle inserted with a low opening pressure of 0 mmHg and the abdomen was insufflated to 15 mmHg pressure. The Veress needle was removed and a 5 mm Xcel trocar placed followed by a 5 mm, 45 degree angle laparoscope, visualizing the peritoneal cavity. Four-quadrant abdominal exploration was performed. The wrap was intact with no recurrent hiatal hernia. There was chronic gallbladder wall inflammation as well as omental adhesions to the fundus of the gallbladder. Under direct visualization we then proceeded to place a supraumbilical 10 mm port after the skin and peritoneum were anesthetized using 0.5% Marcaine and a transverse skin incision made using a 15 blade. We then proceeded with placement of a right upper abdominal quadrant, 5 mm port in a similar fashion. The patient was then placed in reverse Trendelenburg position as well as planed right side up, left side down. The fundus of the gallbladder was retracted anteriorly and superiorly and the omental adhesions were then taken down using electrocautery on the hook instrument. The hepatoduodenal ligament was then opened using the hook instrument using blunt dissection as well as electrocautery. The entire critical view of safety was then identified including the cystic duct and artery going into the gallbladder, as well as the liver behind the proximal gallbladder. A timeout was then taken the cystic duct and artery were then clipped proximally and distally and cut with Endo Mary. The gallbladder was then dissected off the liver bed using cautery on the hook instrument with visualization of good hemostasis, as well as no leaking ducts of Luschka. The gallbladder was removed through the 10 mm port site using an Endo Catch bag. The 10 mm port site, fascia and peritoneum were then closed under direct visualization using a Praneeth-Halina device and 0 Vicryl suture. The abdomen was desufflated and the remaining ports removed. All skin incisions were closed using 4-0 Monocryl running subcuticular sutures. Wounds were then cleaned and covered with Dermabond. The patient tolerated the procedure well. We will start IV and oral pain medication as well as a clear liquid diet. Once he is tolerating clears, has good pain control with oral pain medications and ambulating well, we will discharge him home. Job ID: [id number] Dictated Date: 12/26/2016 09:30:17 Glass Sander Belt Date: 12/27/2016 12:27:54 / gavino
== END 2016-12-26 11:40 | disposition home or self-care (01) ==
LOC: SDC 06:28
PROVIDERS: ATTEND Surgery
DX: K80.10 Calculus of gallbladder with chronic cholecystitis without obstruction (principal); I10 Essential (primary) hypertension; J45.909 Unspecified asthma, uncomplicated; Z79.899 Other long term (current) drug therapy
CPT/HCPCS: 87081; 94664

== ENCOUNTER → 2017-01-20 | Outpatient (CLI) | payer MEDICARE ==
[~2017-01-20] MED LIST changes: +CATHETER FLUSH 10 ML SYR IV PRN; +IOHEXOL 350 MG/ML 100 ML (OMNIPAQUE 350) VIAL IV ONE
[2017-01-20 08:38] LABS: BLOOD UREA NITROGEN 17 MG/DL (7-18); BUN/CREATININE RATIO 22; CREATININE SERUM 0.78 MG/DL (0.60-1.30); GFR ESTIMATED > 60
--- NOTE | 2017-01-20 10:37 | Diagnostic Imaging Report ---
PROCEDURE: CT abdomen and pelvis with contrast. TECHNIQUE: Multiple contiguous axial images were obtained through the abdomen and pelvis after administration of intravenous contrast. INDICATION: Left upper quadrant pain. 100 mL of Omnipaque 350 is administered intravenously. FINDINGS: The lung bases demonstrate minimal atelectasis and scarring. The liver and the adrenal glands appear unremarkable. The gallbladder has been removed with cholecystectomy clips seen in place. The spleen is not enlarged. There is an indeterminate hypodense lesion in the spleen along its periphery measuring 1.2 cm, may relate to a splenic infarct or pseudocyst. There is mild dilatation of the CBD measuring 1.1 cm in caliber. There is a large pancreatic mass measuring 4.5 x 4.8 x 4.0 cm in the inferior aspect of the pancreatic head and uncinate process. It appears to be confined to the pancreas and has displaced the second portion of the duodenum laterally. The main pancreatic duct is not significantly dilated. The accessory duct is slightly dilated. The portal vein, celiac trunk, hepatic artery, SMA, and SMV are all patent. The mass is abutting about one-third of the posterior border of the SMV without compromise of the lumen or CT evidence of invasion. No peripancreatic significantly enlarged lymph nodes are seen. The abdominal aorta is normal in caliber. No para-aortic significantly enlarged lymph node is seen. The kidneys have symmetric enhancement and contrast excretion. No hydronephrosis. Small simple cysts in the left kidney seen. The prostate is slightly enlarged at 5.1 cm in transverse dimension. The urinary bladder appears unremarkable. There is no bowel obstruction. No significant free fluid or fluid collection in the abdomen or pelvis is seen. Osseous structures demonstrate mild right convexity scoliosis. Degenerative changes are also seen. IMPRESSION: There is a 4.8-cm mass in the pancreatic head and uncinate process without definite evidence of invasion to adjacent structures or vessels. It is near the SMV however. This is highly concerning for pancreatic cancer. No peripancreatic lymphadenopathy or evidence of metastasis in the abdomen or pelvis is seen. The findings were discussed with Dr. Stringer by Dr. Shah at time of dictation. Dictated by: Dictated on workstation # [id number]
== END ==
LOC: RAD 07:54
PROVIDERS: ATTEND Surgery
DX: K86.89 Other specified diseases of pancreas (principal)
CPT/HCPCS: 36415; 74177; 82565; 84520

== ENCOUNTER 2017-02-11 08:29 | Outpatient (RCR) | payer MEDICARE ==
[~2017-02-11 08:29] MED LIST changes: -CATHETER FLUSH 10 ML SYR IV PRN; -IOHEXOL 350 MG/ML 100 ML (OMNIPAQUE 350) VIAL IV ONE
== END 2017-03-13 11:21 | disposition home or self-care (01) ==
LOC: ONC 08:29
PROVIDERS: ATTEND Internal Medicine Hematology & Oncology
DX: C25.0 Malignant neoplasm of head of pancreas (principal); I10 Essential (primary) hypertension; J45.909 Unspecified asthma, uncomplicated; Z87.891 Personal history of nicotine dependence; Z79.899 Other long term (current) drug therapy
CPT/HCPCS: 99214

== ENCOUNTER → 2017-03-25 | Outpatient (CLI) | payer MEDICARE ==
[~2017-03-25] MED LIST changes: +BARIUM SUSPENSION 2.1% (VANILLA SILQ) 450 ML PO ONE; +IOHEXOL 350 MG/ML 100 ML (OMNIPAQUE 350) VIAL IV ONE; +NS 100 ML (IVPB) BAG IV ONE
--- NOTE | 2017-03-25 11:11 | Diagnostic Imaging Report ---
PROCEDURE: CT chest, abdomen, and pelvis with contrast. TECHNIQUE: Multiple contiguous axial images were obtained through the chest, abdomen, and pelvis after the administration of intravenous contrast. INDICATION: Pancreatic cancer. 100 mL of Omnipaque 350 is administered intravenously. COMPARISON: 01/20/2017. FINDINGS: CT CHEST: There are areas of scarring in the upper lobes more prominent on the right side. There are calcified granulomas in the mediastinum and in the right hilum. Mild atelectasis in the right lung base posteriorly is seen. The scarring in the upper lungs is probably secondary to an old granulomatous process. No significant consolidation, mass or suspicious nodule is seen. The heart size is normal. No pericardial or pleural effusion. The thoracic aorta is normal in caliber. There is slightly prominent pericardial recesses projecting into the mid mediastinum. The osseous structures demonstrate mild degenerative changes with no suspicious mass. CT ABDOMEN AND PELVIS: There is a pancreatic head mass with central low density suggestive of necrosis measuring 6.7 x 4.9 x 4.6 cm. Although measurements are not very accurate due to the poor definition of the borders of the mass, it does appear to be slightly enlarged compared to 01/20/2017 with previous measurements when performed in a similar fashion of 5.8 x 4.5 x 4.2 cm. There is pancreatic ductal dilatation seen. There is a CBD stent noted at this time. Biliary air within the intrahepatic bile duct is seen. There is a hypodense lesion measuring 1.2 cm noted in the right hepatic lobe anteriorly and inferiorly, segment , axial image 79. This is not visualized on the previous exam and is concerning for an early hepatic metastasis. No other hepatic lesion is identified. This could be better evaluated with liver mass protocol MRI. The spleen is not enlarged. The adrenal glands appear unremarkable. Cholecystectomy clips are seen. The vessels around the pancreas including the SMV, SMA, hepatic artery, and portal vein are all patent. The kidneys have symmetric contrast enhancement and excretion. There is subcentimeter hypodense lesions within the left kidney, stable from the previous exam too small to accurately characterize and is likely a cyst. No hydronephrosis. Abdominal aorta is normal in caliber. No para-aortic significantly enlarged lymph node is seen. There is small amount of free fluid in the pelvis. The prostate is at the upper limits of normal in size measuring 4.8 cm. There is a fluid attenuation lesion oval in shape measuring 3 cm seen in the right inguinal canal. This could be a cystic lesion within the inguinal canal or related to retractile testicle. The osseous structures demonstrate degenerative changes and mild scoliotic curvature convex to the right side centered around the upper lumbar spine levels. No destructive osseous mass is seen. IMPRESSION: CT CHEST: Areas of scarring in the upper lobes and minimal atelectasis in the right lower lobe. No evidence of metastasis. CT ABDOMEN AND PELVIS: 1. There is a 6.7 cm pancreatic head mass. This appears slightly enlarged compared to the previous exam. 2. Concerning 1.2 cm hypodense lesion in the anterior aspect of the right hepatic lobe inferiorly. This is concerning for early metastasis. MRI or PET/CT evaluation can be helpful for confirmation. Dictated by: Dictated on workstation # [id number]
== END ==
LOC: RAD 09:07
PROVIDERS: ATTEND Internal Medicine Hematology & Oncology
DX: C25.9 Malignant neoplasm of pancreas, unspecified (principal); K76.9 Liver disease, unspecified
CPT/HCPCS: 71260; 74177

== ENCOUNTER 2017-04-01 05:41 | Outpatient (CLI) | payer MEDICARE ==
[~2017-04-01] VITALS: Ht 180.3 cm; Wt 73.5 kg
[~2017-04-01 05:41] MED LIST changes: -BARIUM SUSPENSION 2.1% (VANILLA SILQ) 450 ML PO ONE; -IOHEXOL 350 MG/ML 100 ML (OMNIPAQUE 350) VIAL IV ONE; -NS 100 ML (IVPB) BAG IV ONE
[2017-04-01] MEDS ORDERED: HYDR-3816 PO (10:25)
[2017-04-01] MEDS ORDERED: VERA240C4 PO (10:25)
[2017-04-01] MEDS ORDERED: MORP30TA PO (10:25)
[2017-04-01] MEDS ORDERED: BUDE10.22 IH (10:25)
== END 2017-04-01 10:29 ==
LOC: PREOP 05:41
PROVIDERS: ATTEND Surgery
DX: Z01.818 Encounter for other preprocedural examination (principal); C25.9 Malignant neoplasm of pancreas, unspecified

== ENCOUNTER 2017-04-03 10:04 | Day surgery (SDC) | payer MEDICARE ==
[~2017-04-03] VITALS: Ht 180.3 cm; Wt 73.5 kg
[~2017-04-03 10:04] MED LIST changes: +MORP30TA PO; +VERA240C4 PO
[2017-04-03] MEDS ORDERED: BUPIVACAINE 0.5% 30 ML (SENSORCAINE) VIAL ONE (10:08)
[2017-04-03] MEDS ORDERED: LIDOCAINE 1% INJ 20 ML (XYLOCAINE) VIAL ONE (10:08)
[2017-04-03] MEDS ORDERED: 0.9% SODIUM CHLORIDE PF INJ 20 ML VIAL ONE (10:08)
[2017-04-03] MEDS ORDERED: HEParin (CENTRAL IV FLUSH) 500 UNIT/5 ML SYR ONE (10:08)
[2017-04-03] MEDS ORDERED: NS (IVPB) 50 ML ONE (10:19)
[2017-04-03] MEDS ORDERED: ceFAZolin 1,000 MG (ANCEF) VIAL ONE (10:19)
[2017-04-03] MEDS ORDERED: proPOfol 200 MG/20 ML (DIPRIVAN) VIAL IV ONE (10:21)
[2017-04-03] MEDS ORDERED: ceFAZolin 1 GM/NS 50 ML IVPB IV ONE ×2 (10:30)
--- NOTE | 2017-04-03 10:33 | Progress Note-Pre Operative ---
Pre-Operative Progress Note H&P Reviewed The H&P was reviewed, patient examined and no changes noted. Date Seen by Provider: Apr 03, 2017 Time Seen by Provider: 10:32 Date H&P Reviewed: Apr 03, 2017 Time H&P Reviewed: 10:32 Pre-Operative Diagnosis: pancreatic adenocarcinoma BRANDON NOEL DO Apr 03, 2017 10:33
[2017-04-03] MEDS ORDERED: fentaNYL INJECTION 100 MCG/2 ML AMP ONE (10:43)
[2017-04-03] MEDS ORDERED: MIDAZOLAM 2 MG/2 ML (VERSED) VIAL ONE (10:54)
[2017-04-03 11:04] VITALS: BP 151/93
[2017-04-03] MEDS ORDERED: LACTATED RINGERS 1,000 ML IV SCH (11:15)
--- NOTE | 2017-04-03 12:07 | Progress Note-Post Operative ---
Post-Operative Progess Note Surgeon (s)/Gis Instructor (s) Surgeon BRANDON NOEL DO Gis Instructor: na Pre-Operative Diagnosis pancreatic adenocarcinoma Post-Operative Diagnosis same Procedure & Operative Findings Date of Procedure 04/03/17 Procedure Performed/Findings port placement right subclavian vein Anesthesia Type mac Estimated Blood Loss Estimated blood loss (mL): minimal Specimens/Packing Specimens Removed na BRANDON NOEL DO Apr 03, 2017 12:07
--- NOTE | 2017-04-03 12:09 | Discharge Inst-Simple/Standard ---
Discharge Inst-Standard Patient Instructions/Follow Up Plan of Care/Instructions/FU: 2 weeks Betty Activity as Tolerated: No Discharge Diet: Regular Diet Other Inst to Patient Follow up Appt: Make appointment for 2 week. Instructions: No lifting greater than 10 pounds. No strenuous activity. May shower in 24 hours, no tub bath or soaking. Use incentive spirometer at home as directed. No Smoking Skin/Wound Care: May remove bandages in 48 hours. You have special glue over incision it will fall off on its own. Symptoms to Report: Appetite Changes, Extremity Discoloration, Numbness/Tingling, Swelling Increased , Bleeding Excessive, Eyesight Changes, Pain Increased, Urine Color Change, Constipation(Persistent), Fever over 101 degree F, Pain/Pressure in chest, Urinating Difficulty, Cough Up/Vomit Blood, Heart Beat Irreg/Pounding, Pain/ Pressure in jaw, Vaginal Bleeding Increase, Cramps in feet or legs, Lightheadedness, Pain/Pressure in shoulder, Diarrhea(Persistent), Memory Changes Suddenly, Questions/Concerns, Weight gain consecutive days, Dizziness/ Fainting, Nausea/Vomiting, Shortness of Breath, Weight gain over 2 pounds If questions or concerns contact your physician Or seek help at emergency department. BRANDON NOEL DO Apr 03, 2017 12:09
[2017-04-03] MEDS ORDERED: morphine INJ 10 MG/ML 1ML (SYR OR VIAL) IVP PRN (12:15)
[2017-04-03] MEDS ORDERED: ONDANSETRON 4 MG/2 ML (SDV) Z0FRAN IVP PRN (12:15)
[2017-04-03 12:30] VITALS: BP 164/87
--- NOTE | 2017-04-03 12:42 | Diagnostic Imaging Report ---
EXAMINATION: Portable upright radiograph of the chest. COMPARISON: 08/06/16. INDICATION: Port placement. FINDINGS: There is a right subclavian port placed with the tip at the mid SVC level. There is hyperinflation of the lungs with chronic appearing interstitial thickening suggestive of underlying COPD. Borderline cardiac size is seen. No effusion, focal consolidation, or pneumothorax is seen. The mediastinum and margie demonstrate calcified granulomas with no significant change from the previous exam. IMPRESSION: COPD. Borderline cardiac size. Dictated by: Dictated on workstation # [id number]
[2017-04-03 13:00] VITALS: BP 159/84
--- NOTE | 2017-04-03 20:10 | Diagnostic Imaging Report ---
EXAMINATION: Intraoperative view of the chest. INDICATION: Port placement. FLUOROSCOPY TIME: 2 minutes and 57 seconds provided to the OR IMPRESSION: Right subclavian port was placed with the tip at the SVC level. Dictated by: Dictated on workstation # [id number]
--- NOTE | 2017-04-04 01:32 | OPERATIVE REPORT ---
DATE OF SERVICE: 04/03/2017 PREOPERATIVE DIAGNOSIS: Pancreatic adenocarcinoma. POSTOPERATIVE DIAGNOSIS: Pancreatic adenocarcinoma. PROCEDURE: Right subclavian port placement. SURGEON: Brandon Hernández DO ANESTHESIA: MAC. ESTIMATED BLOOD LOSS: Minimal. COMPLICATIONS: None. INDICATIONS FOR PROCEDURE: The patient is a 76-year-old male with pancreatic adenocarcinoma. He understands risks and benefits of having port placement for chemotherapy treatment. The patient wishes to proceed with the procedure. Consent was signed and on the chart. DESCRIPTION OF PROCEDURE: The patient was taken to the operating suite, was prepped and draped in sterile fashion. Surgical pause was performed. Ultrasound was used to see the right internal jugular vein, a little bit small, the needle was inserted. There was a flash of dark nonpulsatile blood that was withdrawn. The micro-access wire was inserted, but the wire was unable to be advanced; therefore, it was removed. The right internal jugular vein was looked again under ultrasound, this was spasmed; therefore it was decided to go to the right subclavian vein. Using the micro-access needle and TB syringe, the right subclavian vein was then accessed, dark nonpulsatile blood was withdrawn. The micro-access wire was inserted and the needle was removed. Fluoroscopy assured proper placement. The micro-access dilator was then advanced over the wire and the wire was removed. The normal guidewire was inserted into the micro-access sheath and the sheath was then removed. Fluoroscopy assured proper placement. The wire was then secured. Local anesthetic was infiltrated into the right chest for pocket creation. A #15 blade scalpel was used to make a skin incision and a pocket was then created with both cautery and blunt dissection. The dilator sheath was then advanced over the guidewire and the dilator and wire were removed. The Groshong catheter was inserted through the sheath and the sheath was then removed, all under fluoroscopy. The Groshong wire was removed. The catheter was cut to length using fluoroscopy. The port was attached to the catheter and secured in place within the pocket. The port was then accessed without difficulty and flushed with saline and then heparin without difficulty. The subcutaneous tissues were then reapproximated using 3-0 Vicryl. The skin was then closed using Dermabond. The area was then washed and dried, and sterile bandage was applied. The patient tolerated the procedure well without any complications. He was taken to the recovery room in stable condition. Chest x-ray pending. Job ID: [id number] DocumentID: [id number] Dictated Date: 04/03/2017 12:15:29 Electrical Intern Date: 04/03/2017 18:04:02 Dictated By: BRANDON HERNÁNDEZ DO
== END 2017-04-03 13:20 | disposition home or self-care (01) ==
LOC: SDC 10:04
PROVIDERS: ATTEND Surgery
DX: C25.9 Malignant neoplasm of pancreas, unspecified (principal); I10 Essential (primary) hypertension; J45.909 Unspecified asthma, uncomplicated; J44.9 Chronic obstructive pulmonary disease, unspecified; Z87.891 Personal history of nicotine dependence; Z79.899 Other long term (current) drug therapy
CPT/HCPCS: 71010; 87081

== ENCOUNTER 2017-04-24 14:55 | Outpatient (RCR) | payer MEDICARE ==
[2017-03-17 11:38] LABS: BASOPHILS % (AUTO) 1 % (0-10); EOSINOPHILS # (AUTO) 0.2 10^3/uL (0.0-0.3); EOSINOPHILS % (AUTO) 3 % (0-10); HEMATOCRIT 35 % (40-54); HEMOGLOBIN 11.5 G/DL (13.3-17.7); LYMPHOCYTES # (AUTO) 0.9 X 10^3 (1.0-4.0); LYMPHOCYTES % (AUTO) 17 % (12-44); MEAN CORPUSCULAR HEMOGLOBIN 29 PG (25-34); MEAN CORPUSCULAR HGB CONC 33 G/DL (32-36); MEAN CORPUSCULAR VOLUME 88 FL (80-99); MEAN PLATELET VOLUME 10.3 FL (7.4-10.4); MONOCYTES # (AUTO) 0.4 X 10^3 (0.0-1.0); MONOCYTES % (AUTO) 8 % (0-12); NEUTROPHILS # (AUTO) 3.7 X 10^3 (1.8-7.8); NEUTROPHILS % (AUTO) 71 % (42-75); PLATELET COUNT 213 10^3/uL (130-400); RED BLOOD COUNT 3.97 10^6/uL (4.35-5.85); RED CELL DISTRIBUTION WIDTH 14.1 % (10.0-14.5); WHITE BLOOD COUNT 5.2 10^3/uL (4.3-11.0)
[2017-03-17 11:56] LABS: ALANINE AMINOTRANSFERASE 16 U/L (0-55); ALKALINE PHOSPHATASE 122 U/L (40-136); BILIRUBIN,TOTAL 0.4 MG/DL (0.1-1.0); BUN/CREATININE RATIO 22; CALCIUM 8.4 MG/DL (8.5-10.1); CARBON DIOXIDE 18 MMOL/L (21-32); CHLORIDE 110 MMOL/L (98-107); CREATININE SERUM 0.74 MG/DL (0.60-1.30); GFR ESTIMATED > 60; GLUCOSE 103 MG/DL (70-105); POTASSIUM 3.4 MMOL/L (3.6-5.0); SODIUM 140 MMOL/L (135-145); TOTAL PROTEIN 5.8 GM/DL (6.4-8.2)
[2017-04-10 11:40] LABS: BASOPHILS % (AUTO) 1 % (0-10); EOSINOPHILS # (AUTO) 0.1 10^3/uL (0.0-0.3); EOSINOPHILS % (AUTO) 2 % (0-10); HEMATOCRIT 33 % (40-54); LYMPHOCYTES # (AUTO) 0.7 X 10^3 (1.0-4.0); LYMPHOCYTES % (AUTO) 12 % (12-44); MEAN CORPUSCULAR HEMOGLOBIN 30 PG (25-34); MEAN CORPUSCULAR HGB CONC 33 G/DL (32-36); MEAN CORPUSCULAR VOLUME 89 FL (80-99); MEAN PLATELET VOLUME 10.4 FL (7.4-10.4); MONOCYTES # (AUTO) 0.4 X 10^3 (0.0-1.0); MONOCYTES % (AUTO) 7 % (0-12); NEUTROPHILS # (AUTO) 4.4 X 10^3 (1.8-7.8); NEUTROPHILS % (AUTO) 78 % (42-75); PLATELET COUNT 179 10^3/uL (130-400); RED BLOOD COUNT 3.73 10^6/uL (4.35-5.85); RED CELL DISTRIBUTION WIDTH 13.2 % (10.0-14.5); WHITE BLOOD COUNT 5.7 10^3/uL (4.3-11.0)
[2017-04-10 12:00] LABS: ALANINE AMINOTRANSFERASE 20 U/L (0-55); ALBUMIN 2.8 GM/DL (3.2-4.5); ALKALINE PHOSPHATASE 158 U/L (40-136); BILIRUBIN,TOTAL 0.4 MG/DL (0.1-1.0); BUN/CREATININE RATIO 30; CALCIUM 8.3 MG/DL (8.5-10.1); CARBON DIOXIDE 25 MMOL/L (21-32); CHLORIDE 108 MMOL/L (98-107); GFR ESTIMATED > 60; GLUCOSE 113 MG/DL (70-105); POTASSIUM 3.1 MMOL/L (3.6-5.0); SODIUM 139 MMOL/L (135-145); TOTAL PROTEIN 5.5 GM/DL (6.4-8.2)
[2017-04-17 13:58] LABS: BASOPHILS % (AUTO) 0 % (0-10); EOSINOPHILS % (AUTO) 0 % (0-10); HEMATOCRIT 30 % (40-54); LYMPHOCYTES # (AUTO) 0.3 X 10^3 (1.0-4.0); LYMPHOCYTES % (AUTO) 6 % (12-44); MEAN CORPUSCULAR HEMOGLOBIN 30 PG (25-34); MEAN CORPUSCULAR HGB CONC 33 G/DL (32-36); MEAN CORPUSCULAR VOLUME 89 FL (80-99); MEAN PLATELET VOLUME 9.8 FL (7.4-10.4); MONOCYTES # (AUTO) 0.4 X 10^3 (0.0-1.0); MONOCYTES % (AUTO) 7 % (0-12); NEUTROPHILS # (AUTO) 5.1 X 10^3 (1.8-7.8); NEUTROPHILS % (AUTO) 87 % (42-75); PLATELET COUNT 74 10^3/uL (130-400); RED BLOOD COUNT 3.37 10^6/uL (4.35-5.85); RED CELL DISTRIBUTION WIDTH 12.8 % (10.0-14.5); WHITE BLOOD COUNT 5.8 10^3/uL (4.3-11.0)
[2017-04-17 14:19] LABS: BUN/CREATININE RATIO 24; CALCIUM 8.4 MG/DL (8.5-10.1); CARBON DIOXIDE 21 MMOL/L (21-32); CHLORIDE 102 MMOL/L (98-107); CREATININE SERUM 0.78 MG/DL (0.60-1.30); GFR ESTIMATED > 60; GLUCOSE 114 MG/DL (70-105); POTASSIUM 3.6 MMOL/L (3.6-5.0); SODIUM 133 MMOL/L (135-145)
[2017-04-21 13:47] LABS: BASOPHILS % (AUTO) 0 % (0-10); EOSINOPHILS % (AUTO) 0 % (0-10); HEMATOCRIT 31 % (40-54); HEMOGLOBIN 10.4 G/DL (13.3-17.7); LYMPHOCYTES # (AUTO) 0.7 X 10^3 (1.0-4.0); LYMPHOCYTES % (AUTO) 8 % (12-44); MEAN CORPUSCULAR HEMOGLOBIN 29 PG (25-34); MEAN CORPUSCULAR HGB CONC 33 G/DL (32-36); MEAN CORPUSCULAR VOLUME 88 FL (80-99); MEAN PLATELET VOLUME 10.1 FL (7.4-10.4); MONOCYTES # (AUTO) 0.7 X 10^3 (0.0-1.0); MONOCYTES % (AUTO) 9 % (0-12); NEUTROPHILS % (AUTO) 83 % (42-75); PLATELET COUNT 211 10^3/uL (130-400); RED BLOOD COUNT 3.54 10^6/uL (4.35-5.85); WHITE BLOOD COUNT 8.4 10^3/uL (4.3-11.0)
[2017-04-21 14:22] LABS: CLARITY,URINE CLEAR; COLOR,URINE AMBER; GLUCOSE, URINE (UA) NEGATIVE (NEGATIVE); KETONES,URINE NEGATIVE (NEGATIVE); LEUKOCYTE ESTERASE ,URINE 1+ (NEGATIVE); NITRITE,URINE NEGATIVE (NEGATIVE); PH,URINE 6 (5-9); PROTEIN,URINE 2+ (NEGATIVE); UROBILINOGEN,URINE 1 MG/DL (NORMAL)
[2017-04-21 14:32] LABS: BACTERIA,URINE TRACE /HPF
[2017-04-21 14:49] LABS: BILIRUBIN,URINE 1+ (NEGATIVE)
[2017-04-21 15:00] LABS: ALANINE AMINOTRANSFERASE 24 U/L (0-55); ALBUMIN 2.7 GM/DL (3.2-4.5); ALKALINE PHOSPHATASE 195 U/L (40-136); BILIRUBIN,TOTAL 0.6 MG/DL (0.1-1.0); BUN/CREATININE RATIO 16; CALCIUM 8.2 MG/DL (8.5-10.1); CARBON DIOXIDE 25 MMOL/L (21-32); CHLORIDE 100 MMOL/L (98-107); GFR ESTIMATED > 60; GLUCOSE 160 MG/DL (70-105); SODIUM 137 MMOL/L (135-145); TOTAL PROTEIN 5.5 GM/DL (6.4-8.2)
[~2017-04-24] VITALS: Ht 180.3 cm; Wt 74.4 kg
[~2017-04-24 14:55] MED LIST changes: +FAMOTIDINE 20MG/2ML IV (CANCER CTR) IV SCH; +GEMCITABINE HCL IV SCH; +NS IV 1000 ML (CANCER CTR) IV SCH; +NS IV SCH; +PACLitaxel PROTEIN 200 MG in EMPTY IV BAG (PVC) CANCER CTR 1 EA IV SCH; +PALONOSETRON 0.25 MG, DEXAMETHASONE 10 MG/NS 50 ML IVPB IV PRN; +VANCOMYCIN IV (CANCER CENTER) 1,000 MG in NS (IVPB) CANCER CENTER 250 ML IV ONE; +cefTRIAXone 2,000 MG/NS 50 ML IVPB (CANCER CTR) IV ONE; +diphenhydrAMINE 25 MG TAB (BENADRYL) CANCER CENTER PO SCH
[2017-05-05] MEDS ORDERED: ONDA8TAB12 PO (19:21)
[2017-05-05] MEDS ORDERED: CLIN150C17 PO (19:21)
[2017-05-05] MEDS ORDERED: VERA240T98 PO (19:21)
[2017-05-05] MEDS ORDERED: CIPR250T3 (19:21)
[2017-05-05] MEDS ORDERED: CEPH500C (19:21)
[2017-05-05] MEDS ORDERED: MORP-33 (19:21)
[2017-05-06] MEDS ORDERED: HYDR-3816 PO (08:16)
[2017-05-06] MEDS ORDERED: MORP-34 PO (08:16)
[2017-05-06] MEDS ORDERED: MORP-33 PO (08:58)
[2017-05-06] MEDS ORDERED: PRD50T PO (10:04)
[2017-05-06] MEDS ORDERED: RT-ALBUINH IH (10:04)
[2017-05-06] MEDS ORDERED: MORP100S3 PO (10:33)
== END 2017-06-15 | disposition home or self-care (01) ==
LOC: ONC 14:55
PROVIDERS: ATTEND Internal Medicine Hematology & Oncology
DX: Z51.11 Encounter for antineoplastic chemotherapy (principal); C25.0 Malignant neoplasm of head of pancreas; I10 Essential (primary) hypertension; J45.909 Unspecified asthma, uncomplicated; Z87.891 Personal history of nicotine dependence; Z79.899 Other long term (current) drug therapy
CPT/HCPCS: 36415; 36591; 80048; 80053; 81000; 85025; 86301; 87040; 87088; 87186; 96360; 96361; 96365; 96367; 96375; 96413; 96417; 99213

== ENCOUNTER 2017-05-05 18:59 | Inpatient (IN) | payer MEDICARE ==
[~2017-05-05] VITALS: Ht 180.3 cm; Wt 74.2 kg
[~2017-05-05 18:59] MED LIST changes: -FAMOTIDINE 20MG/2ML IV (CANCER CTR) IV SCH; -GEMCITABINE HCL IV SCH; -NS IV 1000 ML (CANCER CTR) IV SCH; -NS IV SCH; -PACLitaxel PROTEIN 200 MG in EMPTY IV BAG (PVC) CANCER CTR 1 EA IV SCH; -PALONOSETRON 0.25 MG, DEXAMETHASONE 10 MG/NS 50 ML IVPB IV PRN; -VANCOMYCIN IV (CANCER CENTER) 1,000 MG in NS (IVPB) CANCER CENTER 250 ML IV ONE; -cefTRIAXone 2,000 MG/NS 50 ML IVPB (CANCER CTR) IV ONE; -diphenhydrAMINE 25 MG TAB (BENADRYL) CANCER CENTER PO SCH
[2017-05-05] MEDS ORDERED: CEPH500C (19:21)
[2017-05-05] MEDS ORDERED: ONDA8TAB12 PO (19:21)
[2017-05-05] MEDS ORDERED: CLIN150C17 PO (19:21)
[2017-05-05] MEDS ORDERED: CIPR250T3 (19:21)
[2017-05-05] MEDS ORDERED: MORP-33 (19:21)
[2017-05-05] MEDS ORDERED: VERA240T98 PO (19:21)
[2017-05-05] MEDS ORDERED: RT-ALBUTEROL SULF 2.5 MG/3 ML PRE-MIX VIAL INH STA (19:22)
[2017-05-05] MEDS ORDERED: RT-ALBUTEROL/IPRATROPIUM 3 ML (DUONEB) VIAL INH ONE (19:30)
--- NOTE | 2017-05-05 19:31 | ED General ---
General Chief Complaint: Respiratory Problems Stated Complaint: POSS ASTHMA ATTACK/SOB Source of Information: Patient, Family Exam Limitations: No Limitations History of Present Illness Time Seen by Provider: 19:12 Initial Comments Here with report of increasing shortness of air over the last 24 hours. Tried his nebulizer treatment this morning And that only helped a little bit. The increasing shortness of breath now. Has recent history of pneumonia and has been treated with outpatient antibiotics. Last dose of one of his antibiotics was this morning and he has a couple or days on another antibiotic. Denies nausea or vomiting. Denies chest pain. Timing/Duration: 1-2 Days Severity: Moderate Associated Systoms: No Chest Pain, Cough, Fever/Chills, No Nausea/Vomiting, Shortness of Air Allergies and Home Medications Allergies Coded Allergies: No Known Drug Allergies (Unverified , 08/26/16) Home Medications Budesonide/Formoterol Fumarate 10.2 Gm Hfa.aer.ad, 2 PUFF IH BID, (Reported) Cephalexin 500 Mg Capsule, (Reported) Ciprofloxacin HCl 250 Mg Tablet, (Reported) Clindamycin HCl 150 Mg Capsule, (Reported) Finasteride 5 Mg Tablet, 5 MG PO DAILY, (Reported) 1/2 HOUR AFTER SUPPER Ipratropium/Albuterol Sulfate 3 Ml Ampul.neb, 3 ML IH QID, (Reported) Morphine Sulfate 30 Mg Tablet, 30 MG PO Q12H, (Reported) Morphine Sulfate 15 Mg Tablet.er, (Reported) Ondansetron HCl 8 Mg Tablet, (Reported) Pantoprazole Sodium 40 Mg Tablet.dr, 40 MG PO DAILY, (Reported) Tamsulosin HCl 0.4 Mg Cap.er.24h, 0.4 MG PO DAILY, (Reported) Verapamil HCl 240 Mg Tablet.er, (Reported) Constitutional: see HPI, No chills, fever EENTM: no symptoms reported Respiratory: see HPI Cardiovascular: no symptoms reported Gastrointestinal: no symptoms reported, No nausea, No vomiting Genitourinary: no symptoms reported Musculoskeletal: no symptoms reported Skin: no symptoms reported All Other Systems Reviewed Negative Unless Noted: Yes Past Zomcfvt-Iswwos-Nngypt Hx Patient Social History Alcohol Use: Rarely Uses Number of Drinks Today: AA Alcohol Beverage of Choice: Beer Recreational Drug Use: No Smoking Status: Former Smoker Type Used: Cigarettes Former Smoker, Quit: Aug 26, 1981 2nd Hand Smoke Exposure: No Recent Foreign Travel: No Contact w/Someone Who Travel: No Recent Hopitalizations: No Immunizations Up To Date Tetanus Booster (TDap): Unknown Date of Pneumonia Vaccine: Apr 05, 2014 Date of Influenza Vaccine: Mar 25, 2016 Seasonal Allergies Seasonal Allergies: Yes Surgeries History of Surgeries: Yes (HIATAL HERNIA) Surgeries: Gallbladder, Tonsillectomy Respiratory History of Respiratory Disorde: Yes Respiratory Disorders: Asthma, COPD Cardiovascular History of Cardiac Disorders: Yes Cardiac Disorders: Hypertension Neurological History of Neurological Disord: No Reproductive System Hx Reproductive Disorders: No Sexually Transmitted Disease: No HIV/AIDS: No Genitourinary History of Genitourinary Disor: Yes Genitourinary Disorders: Prostate Problems Gastrointestinal History of Gastrointestinal Di: Yes (pancreatic cancer) Gastrointestinal Disorders: Gastroesophageal Reflux, Chronic Constipation, Polyps, Hiatal Hernia, Gall Bladder Disease Musculoskeletal History of Musculoskeletal Dis: Yes (SPINAL STENOSIS) Musculoskeletal Disorders: Arthritis Endocrine History of Endocrine Disorders: No HEENT History of HEENT Disorders: No Loss of Vision: Bilateral Hearing Impairment: Denies Cancer History of Cancer: Yes Cancer: Pancreatic Did You Recieve Any Treatments: Yes Type of Tx Receive: Chemotherapy Psychosocial History of Psychiatric Problem: No Integumentary History of Skin or Integumenta: No Blood Transfusions History of Blood Disorders: No Adverse Reaction to a Blood Tr: No (N/A) Reviewed Nursing Assessment Reviewed/Agree w Nursing PMH: Yes Family Medical History Significant Family History: No Pertinent Family Hx Physical Exam-Suspected Sepsis Physical Exam Vital Signs Vital Sign - Last 12Hours 05/05/17 05/05/17 19:08 19:22 Temp 100.2 Pulse 83 Resp 20 B/P (MAP) 171/87 Pulse Ox 96 O2 Delivery Room Air Capillary Refill : General Appearance: No Apparent Distress, WD/WN HEENT: PERRL/EOMI, Pharynx Normal Neck: Non Tender, Supple Respiratory: No Accessory Muscle Use, No Respiratory Distress, Wheezing (trace wheezing throughout) Cardiovascular: Regular Rate, Rhythm, No Murmur Gastrointestinal: Non Tender, Soft Back: Normal Inspection, No CVA Tenderness, No Vertebral Tenderness Extremity: Normal Range of Motion, Non Tender Neurologic/Psychiatric: Alert, Oriented x3 Skin: normal color, warm/dry Focused Exam Evaluation Lactate Level Laboratory Tests 05/05/17 19:15: Lactic Acid Level 1.33 Lactic Acid Level Laboratory Tests Test 05/05/17 19:15 Lactic Acid Level 1.33 MMOL/L (0.50-2.00) Progress/Results/Core Measures Suspected Sepsis SIRS Temperature: Pulse: Respiratory Rate: Laboratory Tests 05/05/17 19:15: White Blood Count 6.0 Blood Pressure / Mean: Laboratory Tests 05/05/17 19:15: Lactic Acid Level 1.33 Laboratory Tests 05/05/17 19:15: Creatinine 0.72, INR Comment 1.2, Platelet Count 350, Total Bilirubin 0.7 Results/Orders Lab Results Laboratory Tests Test 05/05/17 19:15 05/05/17 21:12 Range/Units White Blood Count 6.0 4.3-11.0 10^3/uL Red Blood Count 3.40 L 4.35-5.85 10^6/uL Hemoglobin 9.7 L 13.3-17.7 G/DL Hematocrit 30 L 40-54 % Mean Corpuscular Volume 89 80-99 FL Mean Corpuscular Hemoglobin 29 25-34 PG Mean Corpuscular Hemoglobin Concent 32 32-36 G/DL Red Cell Distribution Width 13.6 10.0-14.5 % Platelet Count 350 130-400 10^3/uL Mean Platelet Volume 9.5 7.4-10.4 FL Neutrophils (%) (Auto) 77 H 42-75 % Lymphocytes (%) (Auto) 13 12-44 % Monocytes (%) (Auto) 9 0-12 % Eosinophils (%) (Auto) 0 0-10 % Basophils (%) (Auto) 1 0-10 % Neutrophils # (Auto) 4.6 1.8-7.8 X 10^3 Lymphocytes # (Auto) 0.8 L 1.0-4.0 X 10^3 Monocytes # (Auto) 0.5 0.0-1.0 X 10^3 Eosinophils # (Auto) 0.0 0.0-0.3 10^3/uL Basophils # (Auto) 0.1 0.0-0.1 10^3/uL Prothrombin Time 14.8 H 12.2-14.7 SEC INR Comment 1.2 0.8-1.4 Activated Partial Thromboplast Time 36 H 24-35 SEC Sodium Level 137 135-145 MMOL/L Potassium Level 3.8 3.6-5.0 MMOL/L Chloride Level 102 98-107 MMOL/L Carbon Dioxide Level 23 21-32 MMOL/L Anion Gap 12 5-14 MMOL/L Blood Urea Nitrogen 13 7-18 MG/DL Creatinine 0.72 0.60-1.30 MG/DL Estimat Glomerular Filtration Rate > 60 BUN/Creatinine Ratio 18 Glucose Level 114 H 70-105 MG/DL Lactic Acid Level 1.33 0.50-2.00 MMOL/L Calcium Level 8.0 L 8.5-10.1 MG/DL Total Bilirubin 0.7 0.1-1.0 MG/DL Aspartate Amino Transf (AST/SGOT) 18 5-34 U/L Alanine Aminotransferase (ALT/SGPT) 15 0-55 U/L Alkaline Phosphatase 138 H 40-136 U/L Troponin I < 0.30 <0.30 NG/ML Total Protein 6.1 L 6.4-8.2 GM/DL Albumin 2.5 L 3.2-4.5 GM/DL Urine Color KONRAD H Urine Clarity CLEAR Urine pH 8 5-9 Urine Specific [place] 1.015 L 1.016-1.022 Urine Protein 2+ H NEGATIVE Urine Glucose (UA) NEGATIVE NEGATIVE Urine Ketones NEGATIVE NEGATIVE Urine Nitrite NEGATIVE NEGATIVE Urine Bilirubin NEGATIVE NEGATIVE Urine Urobilinogen NORMAL NORMAL MG/DL Urine Leukocyte Esterase 1+ H NEGATIVE Urine RBC (Auto) 4+ H NEGATIVE Urine RBC 10-25 H /HPF Urine WBC 2-5 /HPF Urine Squamous Epithelial Cells 0-2 /HPF Urine Crystals NONE /LPF Urine Bacteria NONE /HPF Urine Casts NONE /LPF Urine Mucus TRACE /LPF Urine Culture Indicated NO My Orders Orders - ADEOLA MONTES DE OCA MD Cbc With Automated Diff (05/05/17 19:22) Comprehensive Metabolic Panel (05/05/17 19:22) Lactic Acid Analyzer (05/05/17 19:22) Blood Culture (05/05/17 19:22) Sputum Culture (05/05/17 19:22) Ua Culture If Indicated (05/05/17 19:22) Protime With Inr (05/05/17 19:22) Partial Thromboplastin Time (05/05/17 19:22) Chest 1 View, Ap/Pa Only (05/05/17 19:22) O2 (05/05/17 19:22) Saline Lock/Iv-Start (05/05/17 19:22) Saline Lock/Iv-Start (05/05/17 19:22) Troponin I (05/05/17 19:22) Vital Signs Adult Sepsis Patie Q1H (05/05/17 19:22) Remove Rings In Anticipation O (05/05/17 19:22) Albuterol Pre-Mix Nebs (Rt) (Proventil P (05/05/17 19:22) Albuterol/Ipra Inhalation Soln (Duoneb I (05/05/17 19:30) Svn Sm Volume Nebulizer Rt-Rfs (05/05/17 19:22) Svn Sm Volume Nebulizer Rt-Rfs (05/05/17 19:22) Ct Chest Wo (05/05/17 21:23) Piperacillin Sodium/Tazobactam (Zosyn Vi (05/05/17 22:15) Ns (Ivpb) (Sodium Chloride 0.9% Ivpb Bag (05/05/17 22:10) Medications Given in ED Current Medications Medications Dose Ordered Sig/Antoinette Route Start Time Stop Time Status Last Admin Dose Admin Albuterol/ Ipratropium 3 ml ONCE ONCE INH 05/05/17 19:30 05/05/17 19:31 DC 05/05/17 19:39 3 ML Piperacillin Sod/ Tazobactam Sod 4.5 gm ONCE ONCE IV 05/05/17 22:15 05/05/17 22:16 DC 05/05/17 22:27 4.5 GM Sodium Chloride 100 ml @ ud STK-MED ONCE .ROUTE 05/05/17 22:10 05/05/17 22:20 DC 05/05/17 22:27 100 MLS/HR Vital Signs/I&O Vital Sign - Last 12Hours 05/05/17 05/05/17 05/05/17 05/05/17 19:08 19:22 19:40 22:30 Temp 100.2 98.8 Pulse 83 80 Resp 20 25 B/P (MAP) 171/87 Pulse Ox 96 96 94 95 O2 Delivery Room Air Room Air Room Air Room Air Capillary Refill : Progress Note : Progress Note Seen and evaluated. IV, labs, chest x-ray, lactic acid, blood cultures, DuoNeb and albuterol neb ordered. EKG ordered. Monitor patient. Improved after nebulizer treatments. Chest x-ray concerning for new lesions. Given patient's history of metastatic pancreatic cancer, I will get CT of the chest. Patient has had recent fever and I do believe pneumonia is in the differential but there is concern for metastatic lung cancer. 2205: CT is concerning for metastatic disease. There is also concerned related to pneumonia. We will initiate Zosyn in treatment of pneumonia. He has been on antibiotics recently for possible line infection and pneumonia. Zosyn will cover based on cultures for staph aureus that was pansensitive. This will also cover pneumonia well. Dr. Cueva agrees. We will do single coverage at this time and add additional as needed. I did have a discussion with the patient and family regarding his current disease process and the concerns for metastatic lung cancer. Patient has requested DO NOT RESUSCITATE status. We did discuss palliative care and they are in agreement that they would like to discuss this further. Palate of care consult placed. Patient understands that this is a rapidly expanding disease process with pancreatic cancer and he wants to be able to remain comfortable and remained home as long as possible. Family is in agreement. Admit, inpatient status. Patient and family agree with plan. Consult Dr Hearn in am. ECG Initial ECG Impression Date: May 05, 2017 Initial ECG Impression Time: 19:08 Initial ECG Rate: 82 Initial ECG Rhythm: Normal Sinus Initial ECG Comparisson: No Previous ECG Available Comment Sinus rhythm with leftward axis. No evidence of ST elevation MA. No previous available for comparison. Interpreted by me. Diagnostic Imaging Diagonstic Imaging: Xray Plain Films/CT/US/NM/MRI: chest Comments NAME: CATHI BRAND MED REC#: [id number] PT STATUS: REG ER : 1940 PHYSICIAN: ADEOLA MONTES DE OCA MD ADMIT DATE: 05/05/17/ER Signed Date of Exam: 05/05/17 CHEST 1 VIEW, AP/PA ONLY INDICATION: Asthma. FINDINGS: Portable chest shows normal heart size and vascularity. There is bibasilar atelectasis with right basilar infiltrate. There are minimal effusions. IMPRESSION: There is right basilar atelectasis with right lower lobe infiltrate with small effusions present. These findings are changed from the prior study from 04/03/2017. Dictated by: Dictated on workstation # [id number] Dict: 05/05/171943 Trans: 05/05/171947 Interpreted by: RAJ BACON MD Electronically signed by: RAJ BACON MD 05/05/171947 Diagonstic Imaging: CT Plain Films/CT/US/NM/MRI: chest Comments [facility] [place] NAME: CATHI BRAND [facility] REC#: [id number] PT STATUS: REG ER : 1940 PHYSICIAN: ADEOLA MONTES DE OCA MD ADMIT DATE: 05/05/17/ER Draft Date of Exam:05/05/17 CT CHEST WO PROCEDURE: CT chest without contrast. TECHNIQUE: Multiple contiguous axial images were obtained through the chest without the use of intravenous contrast. INDICATION: Shortness of breath. COMPARISON: CT chest with IV contrast 03/25/2017. FINDINGS: There are several new small airspace opacities and focal regions of mass-like consolidation throughout both lungs. The largest of these on the left is in the left lower lobe and measures approximately 3.2 cm. Largest on the right is in the right middle lobe and measures up to 1.5 cm. Small left and moderate right pleural effusions are new. Right IJ tunneled port CVC tip in the low SVC. Moderate atherosclerotic calcifications including a normal caliber thoracic aorta. No endobronchial lesions. No pneumothorax. No mediastinal, hilar, or axillary lymphadenopathy. Calcified right hilar lymph nodes. Increasing pericardial effusion measuring up to 1.2 cm. Moderate degenerative changes in the visualized spine. No suspicious osteoblastic or lytic lesions. Biliary stents and expected pneumobilia. Cholecystectomy. The known pancreatic head mass is poorly characterized on this noncontrast exam. IMPRESSION: 1. Several new bilateral foci of mass-like consolidation and ground-glass opacities. The largest of these measures up to 3.2 cm in the left lower lobe. Findings are suspicious for metastatic disease. 2. New bilateral pleural effusions, moderate on the right, small on the left. 3. New pericardial effusion measuring up to 1.2 cm in thickness. Dictated on workstation # [id number] Dict: 05/05/172203 Trans: 05/05/172216 [id number] Interpreted by: KENTRELL BENITO MD Electronically signed by: Departure Communication (Admissions) Time/Spoke to Admitting Phy: 22:05 Impression Impression: Primary Impression: Pneumonia involving right lung Qualified Codes: J18.1 - Lobar pneumonia, unspecified organism Additional Impression: Primary pancreatic cancer with metastasis to other site Disposition: ADMITTED INPATIENT Condition: Stable Admissions Decision to Admit Reason: Admit from ER (General) Decision to Admit/Date: May 05, 2017 Time/Decision to Admit Time: 22:05 Departure-Patient Inst. Referrals: FRANK ZENDEJAS MD (PCP/Family) Primary Care Physician Copy Copies To 1: FRANK ZENDEJAS MD, TIMOTHY D MD May 05, 2017 19:31
[2017-05-05 19:33] LABS: BASOPHILS # (AUTO) 0.1 10^3/uL (0.0-0.1); BASOPHILS % (AUTO) 1 % (0-10); EOSINOPHILS % (AUTO) 0 % (0-10); LYMPHOCYTES # (AUTO) 0.8 X 10^3 (1.0-4.0); LYMPHOCYTES % (AUTO) 13 % (12-44); MEAN CORPUSCULAR HEMOGLOBIN 29 PG (25-34); MEAN CORPUSCULAR HGB CONC 32 G/DL (32-36); MEAN CORPUSCULAR VOLUME 89 FL (80-99); MEAN PLATELET VOLUME 9.5 FL (7.4-10.4); MONOCYTES # (AUTO) 0.5 X 10^3 (0.0-1.0); MONOCYTES % (AUTO) 9 % (0-12); NEUTROPHILS # (AUTO) 4.6 X 10^3 (1.8-7.8); NEUTROPHILS % (AUTO) 77 % (42-75); PLATELET COUNT 350 10^3/uL (130-400); RED CELL DISTRIBUTION WIDTH 13.6 % (10.0-14.5)
[2017-05-05 19:37] LABS: INR 1.2 (0.8-1.4); PROTHROMBIN TIME PATIENT 14.8 SEC (12.2-14.7)
--- NOTE | 2017-05-05 19:48 | Diagnostic Imaging Report ---
INDICATION: Asthma. FINDINGS: Portable chest shows normal heart size and vascularity. There is bibasilar atelectasis with right basilar infiltrate. There are minimal effusions. IMPRESSION: There is right basilar atelectasis with right lower lobe infiltrate with small effusions present. These findings are changed from the prior study from 04/03/2017. Dictated by: Dictated on workstation # [id number]
[2017-05-05 19:50] LABS: ALANINE AMINOTRANSFERASE 15 U/L (0-55); ALBUMIN 2.5 GM/DL (3.2-4.5); ANION GAP 12 MMOL/L (5-14); ASPARTATE AMINO TRANSFERASE 18 U/L (5-34); BILIRUBIN,TOTAL 0.7 MG/DL (0.1-1.0); BLOOD UREA NITROGEN 13 MG/DL (7-18); BUN/CREATININE RATIO 18; CARBON DIOXIDE 23 MMOL/L (21-32); CHLORIDE 102 MMOL/L (98-107); CREATININE SERUM 0.72 MG/DL (0.60-1.30); GFR ESTIMATED > 60; GLUCOSE 114 MG/DL (70-105); POTASSIUM 3.8 MMOL/L (3.6-5.0); SODIUM 137 MMOL/L (135-145); TOTAL PROTEIN 6.1 GM/DL (6.4-8.2)
[2017-05-05 19:56] LABS: TROPONIN I < 0.30 NG/ML (<0.30)
[2017-05-05 21:21] LABS: BILIRUBIN,URINE NEGATIVE (NEGATIVE); KETONES,URINE NEGATIVE (NEGATIVE); LEUKOCYTE ESTERASE ,URINE 1+ (NEGATIVE); NITRITE,URINE NEGATIVE (NEGATIVE); PH,URINE 8 (5-9); PROTEIN,URINE 2+ (NEGATIVE); UROBILINOGEN,URINE NORMAL (NORMAL)
[2017-05-05 21:30] LABS: SQUAMOUS EPITHELIAL CELL,UR 0-2 /HPF
[2017-05-05] MEDS ORDERED: NS (IVPB) 100 ML ONE (22:10)
[2017-05-05] MEDS ORDERED: PIPERACILLIN/TAZO 4.5 GM VIAL (ZOSYN) IV ONE (22:15)
--- NOTE | 2017-05-05 22:16 | Diagnostic Imaging Report ---
PROCEDURE: CT chest without contrast. TECHNIQUE: Multiple contiguous axial images were obtained through the chest without the use of intravenous contrast. INDICATION: Shortness of breath. COMPARISON: CT chest with IV contrast 03/25/2017. FINDINGS: There are several new small airspace opacities and focal regions of mass-like consolidation throughout both lungs. The largest of these on the left is in the left lower lobe and measures approximately 3.2 cm. Largest on the right is in the right middle lobe and measures up to 1.5 cm. Small left and moderate right pleural effusions are new. Right IJ tunneled port CVC tip in the low SVC. Moderate atherosclerotic calcifications including a normal caliber thoracic aorta. No endobronchial lesions. No pneumothorax. No mediastinal, hilar, or axillary lymphadenopathy. Calcified right hilar lymph nodes. Increasing pericardial effusion measuring up to 1.2 cm. Moderate degenerative changes in the visualized spine. No suspicious osteoblastic or lytic lesions. Biliary stents and expected pneumobilia. Cholecystectomy. The known pancreatic head mass is poorly characterized on this noncontrast exam. IMPRESSION: 1. Several new bilateral foci of mass-like consolidation and ground-glass opacities. The largest of these measures up to 3.2 cm in the left lower lobe. Findings are suspicious for metastatic disease. 2. New bilateral pleural effusions, moderate on the right, small on the left. 3. New pericardial effusion measuring up to 1.2 cm in thickness. Dictated by: Dictated on workstation # [id number]
[2017-05-05 22:55] VITALS: BP 175/84
[2017-05-05] MEDS ORDERED: HYDROcodone/APAP 7.5 MG/325 MG (LORTAB, LORCET PLUS) TABLET PO PRN (23:15)
[2017-05-05] MEDS ORDERED: ONDANSETRON 4 MG/2 ML (SDV) Z0FRAN IV PRN (23:15)
[2017-05-06] MEDS ORDERED: RT-ALBUTEROL/IPRATROPIUM 3 ML (DUONEB) VIAL ONE (00:02)
[2017-05-06 02:55] VITALS: BP 175/84
[2017-05-06] MEDS ORDERED: RT-ALBUTEROL/IPRATROPIUM 3 ML (DUONEB) VIAL INH PRN (03:15)
[2017-05-06 04:00] VITALS: BP 147/75
[2017-05-06] MEDS ORDERED: PIPERACILLIN/TAZOBACTAM 4.5 GM/NS100 ML IVPB IV SCH ×2 (04:00)
[2017-05-06 05:07] LABS: BASOPHILS % (AUTO) 1 % (0-10); EOSINOPHILS # (AUTO) 0.1 10^3/uL (0.0-0.3); EOSINOPHILS % (AUTO) 2 % (0-10); LYMPHOCYTES # (AUTO) 0.9 X 10^3 (1.0-4.0); LYMPHOCYTES % (AUTO) 19 % (12-44); MEAN CORPUSCULAR HEMOGLOBIN 29 PG (25-34); MEAN CORPUSCULAR HGB CONC 33 G/DL (32-36); MEAN CORPUSCULAR VOLUME 89 FL (80-99); MEAN PLATELET VOLUME 9.4 FL (7.4-10.4); MONOCYTES # (AUTO) 0.7 X 10^3 (0.0-1.0); MONOCYTES % (AUTO) 15 % (0-12); NEUTROPHILS % (AUTO) 63 % (42-75); PLATELET COUNT 264 10^3/uL (130-400); RED BLOOD COUNT 2.83 10^6/uL (4.35-5.85); RED CELL DISTRIBUTION WIDTH 13.5 % (10.0-14.5); WHITE BLOOD COUNT 4.8 10^3/uL (4.3-11.0)
[2017-05-06 05:34] LABS: ALANINE AMINOTRANSFERASE 13 U/L (0-55); ALBUMIN 2.1 GM/DL (3.2-4.5); ANION GAP 9 MMOL/L (5-14); ASPARTATE AMINO TRANSFERASE 16 U/L (5-34); BILIRUBIN,TOTAL 0.6 MG/DL (0.1-1.0); BLOOD UREA NITROGEN 13 MG/DL (7-18); BUN/CREATININE RATIO 18; CALCIUM 7.6 MG/DL (8.5-10.1); CARBON DIOXIDE 25 MMOL/L (21-32); CHLORIDE 105 MMOL/L (98-107); CREATININE SERUM 0.72 MG/DL (0.60-1.30); GFR ESTIMATED > 60; GLUCOSE 96 MG/DL (70-105); POTASSIUM 3.6 MMOL/L (3.6-5.0); SODIUM 139 MMOL/L (135-145); TOTAL PROTEIN 5.1 GM/DL (6.4-8.2)
[2017-05-06] MEDS: morphine ER 15 MG (MS CONTIN) TAB PO SCH ×2 (05:35→13:43)
[2017-05-06] MEDS: RT-ALBUTEROL/IPRATROPIUM 3 ML (DUONEB) VIAL INH SCH ×3 (06:26→14:26)
[2017-05-06] MEDS ORDERED: INFLUENZA TRIvalent 2017-2018 0.5 ML/45 MCG SYR IM ONE (07:00)
[2017-05-06 08:00] VITALS: BP 189/88
[2017-05-06] MEDS ORDERED: MORP-34 PO (08:16)
[2017-05-06] MEDS ORDERED: HYDR-3816 PO (08:16)
[2017-05-06] MEDS ORDERED: MORP-33 PO (08:58)
[2017-05-06] MEDS ORDERED: predniSONE 20 MG TAB PO NR (10:02)
[2017-05-06] MEDS ORDERED: PRD50T PO (10:04)
[2017-05-06] MEDS ORDERED: RT-ALBUINH IH (10:04)
[2017-05-06] MEDS ORDERED: morphine INJ 4 MG/ML 1 ML (VIAL/SYRINGE) IVP PRN (10:15)
[2017-05-06] MEDS ORDERED: FUROSEMIDE 40 MG/4 ML INJ (LASIX) IVP NR (10:15)
[2017-05-06] MEDS ORDERED: MORP100S3 PO (10:33)
--- NOTE | 2017-05-06 10:35 | Short Stay Summary-Hospitalist ---
HPI History of Present Illness: HPI/Chief Complaint Pt is a 85yoCM with a PMH of HTN and metastatic pancreatic cancer. He had a recent port infection and was treated with clindamycin but continued to have remitting fevers and worsening pain. He has not had a fever since 05/02. Yesterday his SOB worsening significantly and was unresponsive to his breathing treatments. He presented to the ER and imaging revealed worsening mets vs pneumonia. He was started on abx and admitted with palliative consult and he was interested in comfort measures given progression of disease. He follows with Dr. Lobato and has only been able to undergo one round of chemo because of his infection. Date Seen 05/06/17 Time Seen by Provider: 08:45 Attending Physician Prince Pierre MD PCP Antwan Damon MD Referring Physician Date of Admission May 05, 2017 at 22:20 Home Medications & Allergies Home Medications Reviewed patient Home Medication Reconciliation Form Allergies Allergies Coded Allergies No Known Drug Allergies (Unverified08/26/16) Past Wpgnbrw-Jjskzr-Nkocyc Hx Patient Social History Marrital Status: Alcohol Use: Past History Number of Drinks Today: AA Alcohol Beverage of Choice: Beer Recreational Drug Use: No Smoking Status: Former Smoker Former Smoker, Quit: Jun 16, 1981 Type Used: Cigarettes 2nd Hand Smoke Exposure: No Physical Abuse Screen: No Sexual Abuse: No Recent Foreign Travel: No Contact w/other who traveled: No Recent Hopitalizations: Yes Recent Infectious Disease Expo: No Immunizations Up To Date Tetanus Booster (TDap): Unknown Pediatric: No Date of Pneumonia Vaccine: Apr 05, 2014 Date of Influenza Vaccine: Mar 25, 2016 Seasonal Allergies Seasonal Allergies: No Surgeries Yes (hernia) Gallbladder, Tonsillectomy Respiratory Yes Currently Using CPAP: No Currently Using BIPAP: No Cardiovascular Yes Hypertension Neurological No Reproductive System Hx Reproductive Disorders: No Sexually Transmitted Disease: No HIV/AIDS: No Genitourinary No Prostate Problems Gastrointestinal Yes Gastroesophageal Reflux, Hiatal Hernia, Gall Bladder Disease Musculoskeletal Yes Arthritis Endocrine History of Endocrine Disorders: No HEENT History of HEENT Disorders: No Loss of Vision: Bilateral Hearing Impairment: Denies Cancer Yes Pancreatic Did You Recieve Any Treatments: Yes Type of Treatment: Chemotherapy Cancer Comment: Single dose of chemotherapy in March 2017. Psychosocial History of Psychiatric Problem: No Integumentary History of Skin or Integumenta: No Blood Transfusions History of Blood Disorders: No Adverse Reaction to a Blood Tr: No Reviewed Nursing Assessment Reviewed/Agree w Nursing PMH: Yes Family Medical History Significant Family History: No Pertinent Family Hx Family Hx: Patient reports no known family medical history. Review of Systems Constitutional: No chills, No fever EENTM: No blurred vision, No double vision, No nose congestion, No throat pain Respiratory: cough, No dyspnea on exertion, short of breath Cardiovascular: No chest pain, No edema, No palpitations Gastrointestinal: No abdominal pain, No constipation, No diarrhea, No nausea, No vomiting Genitourinary: No dysuria, No frequency Musculoskeletal: No joint pain, No muscle pain Skin: No lesions, No rash Psychiatric/Neurological: Denies Headache, Denies Numbness, Denies Tingling Physical Exam Physical Exam Vital Signs Vital Sign - Last 12Hours 05/05/17 05/05/17 05/05/17 05/06/17 19:08 19:22 22:50 02:55 Temp 100.2 Pulse 83 Resp 20 B/P (MAP) 171/87 Pulse Ox 96 O2 Delivery Room Air O2 Flow Rate 2.00 FiO2 28 Capillary Refill : Less Than 3 Seconds General Appearance: No Apparent Distress HEENT: PERRL/EOMI, Moist Mucous Membranes Neck: Normal Inspection, Supple Respiratory: Lungs Clear, No Accessory Muscle Use Cardiovascular: Regular Rate, Rhythm, No Murmur Gastrointestinal: Normal Bowel Sounds, Non Tender, Soft Extremity: Normal Capillary Refill, No Calf Tenderness, Swelling (left ankle) Neurologic/Psychiatric: Alert, Oriented x3, Normal Mood/Affect Skin: Normal Color, Warm/Dry Results Results/Procedures Lab Laboratory Tests 05/05/17 19:15 05/06/17 04:55 Short Stay Diagnosis Discharge Diagnosis-Short Stay Admission Diagnosis Dyspnea Final Discharge Diagnosis metastatic pancreatic cancer Conclusion Plan See Problems Diagnosis/Problems Diagnosis/Problems (1) Lung metastases Status: Acute Assessment & Plan: New mass like foci on CT Discussed goals of care and recommended hospice Palliative consult placed Roxanol for air hunger Continue MS Contin for pain (2) Primary pancreatic cancer with metastasis to other site Status: Acute Assessment & Plan: Diagnosed in January Rapidly progressive and unresponsive to treatment (3) Counseling regarding end of life decision making Assessment & Plan: Discussed at length extent of disease and recommendation for hospice I called and informed Dr. Lobato of update Family elected [facility] Will arrange for discharge today (4) HTN (hypertension) Status: Chronic Assessment & Plan: BP labile Will defer treatment given goals of care for comfort Copy Copies To 1: ANTWAN DAMON MD; TIFFANY LOBATO MD Clinical Quality Measures Type of Care: Type of Care: Comfort Measures, Hospice Care (Home) DVT/VTE Risk/Contraindication: Risk Factor Score Per Nursin RFS Level Per Nursing on Admit: 4+=Very High FABIAN FARAH MD May 06, 2017 10:35
[2017-05-06 15:53] VITALS: BP 189/88
== END 2017-05-06 15:35 | disposition hospice, home (50) | DRG 181 ==
LOC: EDUNIT# 18:59 → ER 19:00 → 4TH 22:20
PROVIDERS: ADMIT Internal Medicine; ATTEND Internal Medicine
DX: C78.01 Secondary malignant neoplasm of right lung (principal); C78.02 Secondary malignant neoplasm of left lung; C25.0 Malignant neoplasm of head of pancreas; I10 Essential (primary) hypertension; J44.9 Chronic obstructive pulmonary disease, unspecified; K21.9 Gastro-esophageal reflux disease without esophagitis; K59.09 Other constipation; Z66 Do not resuscitate; Z87.891 Personal history of nicotine dependence; Z92.21 Personal history of antineoplastic chemotherapy
CPT/HCPCS: 36415; 71010; 71250; 80053; 81000; 83605; 84484; 85025; 85610; 85730; 87040; 93005; 94640; 94760; 96374